=== PATIENT | male | born 1955 | race Caucasian/White ===

== ENCOUNTER 2017-02-15 11:58 | Emergency (ER) | payer BC, OTHER ==
[~2017-02-15] VITALS: Ht 172.7 cm; Wt 72.4 kg
[~2017-02-15 11:58] MED LIST: HYDR-3419 PO
[2017-02-15 12:02] VITALS: TEMP 36.8; Ht 172.7 cm; Wt 72.4 kg
[2017-02-15] MEDS ORDERED: KETOROLAC TROMETHAMINE 60 MG/2 ML VIAL IM STA (12:59)
[2017-02-15 13:07] LABS: URINE APPEARANCE CLEAR (CLEAR); URINE BILIRUBIN NEG (NEG); URINE COLOR YELLOW; URINE NITRITE NEG (NEG); URINE PH 7.5 (4.5-7.5); URINE SPECIFIC GRAVITY 1.022 (1.000-1.030); UROBILINOGEN NEG (NEG); ZZUR CULT IF INDIC CLEAN CATCH NO
[2017-02-15 13:18] LABS: MANUAL MICROSCOPIC REQUIRED? NO; REVIEW REQ? NO
--- NOTE | 2017-02-15 13:48 | DIAGNOSTIC IMAGING REPORT ---
RIGHT HAND MIN 3 VIEWS ROUTINE CLINICAL HISTORY: Right hand/thumb pain Right pain COMPARISON: None. DISCUSSION: Moderate degenerative change first metacarpophalangeal joint as well as interphalangeal joint. Minimal degenerative changes of the remaining interphalangeal joints. Several small marginal erosions. Intercarpal region is unremarkable. There is no evidence for soft tissue swelling. IMPRESSION: Mild degenerative change as described. No acute bony abnormality. The above report was generated using voice recognition software. It may contain grammatical, syntax or spelling errors. Electronically signed by: Antwon Basurto M.D. 02/15/2017 1:46 PM Dictated Date/Time: 02/15/2017 1:44 PM
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
[2017-02-15] MEDS ORDERED: OPTIRAY 320 IV PRN (15:00)
[2017-02-15 15:06] LABS: BASO % 0.2 %; BASO ABS # 0.02 K/uL (0-0.2); COMPLETE YES; EOS % 1.1 %; HEMATOCRIT 40.8 % (42-52); IG% 0.2 %; LYMPH % 15.6 %; LYMPH ABS # 1.47 K/uL (1.2-3.4); MEAN CELL VOLUME 87.4 fL (80-100); MEAN CORPUSCULAR HEMOGLOBIN 30.2 pg (25-34); MEAN CORPUSCULAR HGB CONC 34.6 g/dl (32-36); MEAN PLATELET VOLUME 9.8 fL (7.4-10.4); MONO % 5.8 %; NEUT % 77.1 %; PLATELET COUNT 181 K/uL (130-400); RED BLOOD COUNT 4.67 M/uL (4.7-6.1); WHITE BLOOD COUNT 9.45 K/uL (4.8-10.8)
[2017-02-15 15:21] LABS: BUN/CREATININE RATIO 16.1 (10-20); CALCIUM 9.6 mg/dl (8.5-10.1); CREATININE 0.96 mg/dl (0.60-1.40); POTASSIUM 4.4 mmol/L (3.5-5.1)
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
[2017-02-15] MEDS ORDERED: MoRPHine SULFATE 4 MG/ML 1 ML CARP\\VIAL IV STA (17:28)
[2017-02-15] MEDS ORDERED: ONDANSETRON INJ 2 MG/ML 2 ML VIAL IV STA (17:28)
[2017-02-15] MEDS ORDERED: OXYC1TAB3 PO (17:35)
[2017-02-15] MEDS ORDERED: ONDA4TAB10 SL (17:35)
[2017-02-15 18:06] VITALS: BP 113/84; PULSE 60; O2SAT 95
== END 2017-02-15 18:09 | disposition home or self-care (01) ==
LOC: C.EDB 12:00 → C.EDD 18:09
DX: S22.41XA Multiple fractures of ribs, right side, initial encounter for closed fracture (principal); M51.26 Other intervertebral disc displacement, lumbar region; V23.4XXA Motorcycle driver injured in collision with car, pick-up truck or van in traffic accident, initial encounter; Y93.89 Activity, other specified

== ENCOUNTER 2023-09-11 08:16 | Inpatient (IN) ==
[2023-09-11] MEDS: NITROGLYCERIN SL 0.4 MG/TAB TAB ONE (08:31)
[2023-09-11] MEDS: ASPIRIN CHEW 324 MG ONE (08:31)
--- NOTE | 2023-09-11 08:34 | Emergency Department Note ---
Impression & Plan ST elevation (STEMI) myocardial infarction, Chest pain ED Provider Note Provider: Dank Manrique MD DATE OF SERVICE: 09/11/2023 CHIEF COMPLAINT: Chest pain HISTORY OF PRESENT ILLNESS: Patient is a 67-year-old gentleman history of GERD, hypertension, arthritis presenting here today reporting onset around 6-6 30 when he got up to use the bathroom and came back to bed of developing burning sensation in the upper chest with some radiation to the right arm and into the jaw. Denies syncope or lightheadedness. Denies dizziness. Somewhat short of breath. No nausea or abdominal pain. Has moderated some and currently rates it a 6 or 7 out of 10 at this time. No breakfast this morning. No history of similar. Denies any swelling. No medications prior to arrival PAST MEDICAL HISTORY: As noted above MEDICATIONS: Reviewed does not take aspirin FMH: Mother with a valve replacement in her late 80s SOCIAL HISTORY: Non-smoker, PHYSICAL EXAM: GENERAL: alert and oriented in no acute distress on stretcher Head: normocephalic and atraumatic EYES: No injection, discharge or icterus. NECK: Trachea midline. ENT: Mucous membranes pink and moist. LUNGS: Airway patent. No retractions. Breath sounds clear HEART: Regular rate and rhythm. No chest wall tenderness ABDOMEN: Soft and non-tender, without guarding or rebound. SKIN: Acyanotic, warm, dry, without rashes EXTREMITIES: Without swelling, tenderness or deformity with some slight reproducible pain of the right mid forearm without redness or mass/swelling noted. NEUROLOGICAL: No focal deficits. No aphasia. No facial droop or slurred speech. Ambulatory. EK bpm sinus bradycardia. No PVC or PAC. Some lateral ST segment elevation of V5 and V6 concerning for STEMI. CONTINUOUS CARDIAC MONITORING: was ordered and showed a heart rate of 50s to 60s bpm in sinus bradycardia to normal sinus rhythm Patient's laboratory studies and imaging reviewed. Differential includes Cardiac ischemia, aortic dissection, pulmonary embolism, pneumothorax, pneumonia, pericarditis, myocarditis, esophageal rupture, GERD, cholecystitis, pancreatitis, musculoskeletal, as well as other pathologies. IMPRESSION/MEDICAL DECISION MAKING: Aspirin nitroglycerin and IV heparin ordered. Story as well as EKG with lateral ST segment elevation concerning for STEMI. Heart alert called. Doubt this represents dissection. Not hypoxic and doubt this represents PE. No other infectious symptomatologies. Benign abdomen. Doubt intra-abdominal pathology at this time. Laboratory studies including troponin and BNP were sent. Will have interventional cardiology evaluate for possible reperfusion therapy/[facility]. Hypertension as well as rheumatoid arthritis may be risk factors for CAD. 4000 units of IV heparin was ordered. Evaluated by interventional cardiology and taken to the [facility] for further evaluation. Case management sent alert to the hospitalist team to make them aware of the patient. Troponin does later returned elevated consistent with concerns for evolving ACS. DIAGNOSIS: STEMI, chest pain DISPOSITION: Hospitalist will evaluate Patient was agreeable with this plan. Critical Care I have personally spent 31 minutes of critical care time in the direct management of this patient. This includes bedside care, interpretation of diagnostic studies, and testing, discussion with consultants, patient, and family members, and other required patient management activities. These 31 minutes is in excess of all separately billable procedures. Past Med/Surg History Medical History (Updated 09/11/23 @ 08:50 by Dank Manrique M.D.) Elevated PSA HLA B27 (HLA B27 positive) COVID-19 07/12/21 developed pneumonia Hypertension Rheumatoid arthritis Lateral epicondylitis Surgical History S/P hernia repair 2010- umbilical hernia S/P hemorrhoidectomy 1996-Ligation with rubber band Family History Father Multiple myeloma Mother Diabetes Mitral valve disorder Brother Colorectal cancer Denies family history of Ovarian cancer Prostate cancer Myocardial infarction Breast cancer Lung cancer Stroke Social History Smoking Status: Never smoker Second Hand Exposure: No; Do You Dip or Chew Tobacco: No; Hx Alcohol Use: No Hx Substance Use: No Preferred Language: French Communication Ability: Effective Visual Impairment: Limited Hearing Ability: Normal marital status: Current Living Situation: Spouse current occupational status: employed How many Children do You have: 0 Feels Safe at Home: Yes Childhood Exposure to Second-Hand Smoke: No Diet: gluten free and low carbohydrate caffeine: Yes Dental Care, Regularly: Yes Physical Activity Frequency: 3-4 Times per Week Seatbelt Use: always Sunscreen Use: Yes Do you think of yourself as: straight/heterosexual Assistive Devices: Glasses Allergies Allergies Allergy/AdvReac Type Severity Reaction Status Date / Time oxycodone Allergy Intermediate Nausea/ Verified 07/20/23 08:58 vomitting Home Meds Home Medications Medication Instructions Recorded Confirmed prednisone 5 mg tablet 5 mg PO DAILY PRN 04/13/22 07/20/23 gabapentin 100 mg capsule 100 mg PO DAILY PRN 04/25/22 07/20/23 folic acid 1 mg tablet 1 mg PO 03/22/23 07/20/23 methotrexate sodium 2.5 mg tablet 10 mg PO BID 07/20/23 07/20/23 sulfasalazine 500 mg tablet 1 g PO BID 07/20/23 07/20/23 Previous Rx's Medication Instructions Recorded hydrocortisone 5 mg tablet 5 mg PO DAILY PRN itching #90 tabs 06/02/22 hydrocortisone 2.5 % topical cream 1 applic topical BID PRN skin 08/23/22 irritation #20 grams diclofenac sodium 75 mg 75 mg PO BID #180 tabs 07/20/23 tablet,delayed release meclizine 25 mg tablet 25 mg PO TID #30 tabs 07/20/23 valsartan 80 mg tablet 80 mg PO DAILY #90 tabs 07/20/23 Results & Data (ED) Vital Signs Vital Signs - 24 hr 09/11/23 08:21 09/11/23 08:35 09/11/23 09:54 Temperature 36.0 C L Temperature Source Oral Pulse Rate 58 L 60 Respiratory Rate 16 18 Respiratory Effort / Characteristics Non-Labored Non-Labored Respiratory Depth Normal Normal Respiratory Pattern Regular Blood Pressure 153/78 H Blood Pressure [Left Arm] 118/52 L Blood Pressure Mean 103 Blood Pressure Mean [Left Arm] 74 Blood Pressure Position [Left Arm] Semi-fowlers Pulse Oximetry 100 97 Oxygen Delivery Method Room Air Room Air Sepsis Recent Fever Within 48 Hours No Sepsis New/Unexplained Change in Mental Status N/A Sepsis Action Taken by Nursing No Action Required Laboratory Data 09/11/23 08:33 09/11/23 08:33 Lab Results 09/11/23 09/11/23 09/11/23 Range/Units 08:33 09:10 09:26 WBC 9.43 (4.8-10.8) K/ul RBC 4.17 L (4.70-6.10) M/uL Hgb 12.4 L (14.0-18.0) g/dl Hct 38.2 L (42.0-52.0) % MCV 91.6 (80.0-100.0) fL MCH 29.7 (25.0-34.0) pg MCHC 32.5 (32.0-36.0) g/dL RDW Std Deviation 47.2 H (36.4-46.3) fL RDW Coeff of Rogerio 14.1 (11.5-14.5) % Plt Count 193 (130-400) K/uL MPV 9.1 L (9.4-12.4) fL Immature Gran % (Auto) 0.5 % Neut % (Auto) 74.2 % Lymph % (Auto) 17.1 % Laurel % (Auto) 6.2 % Eos % (Auto) 1.3 % Baso % (Auto) 0.7 % Neut # (Auto) 7.00 H (1.40-6.50) K/uL Lymph # (Auto) 1.61 (1.20-3.40) K/uL Laurel # (Auto) 0.58 (0.11-0.59) K/uL Eos # (Auto) 0.12 (0.00-0.50) K/uL Baso # (Auto) 0.07 (0.00-0.20) K/uL Immature Gran # (Auto) 0.05 (0.01-0.20) K/uL PT 10.3 (9.0-12.0) Seconds INR 0.9 (0.9-1.1) APTT 23 (21-31) Seconds PTT Ratio 0.8 Activ Coag Time Kaolin 190 H 212 H (94-140) SECONDS Sodium 140 (136-145) mmol/L Potassium 4.0 (3.5-5.1) mmol/L Chloride 107 (98-107) mmol/L Carbon Dioxide 27 (21-32) mmol/L Anion Gap 6 (3-11) BUN 21 (6-23) mg/dl Creatinine 0.93 (0.6-1.4) mg/dl Est Cr Clr Drug Dosing 72.5 ml/min Est GFR ( Amer) 96.7 ml/min Est GFR (Non-Af Amer) 83.5 ml/min BUN/Creatinine Ratio 22.6 H (10-20) Glucose 110 H (70-99(Fasting)) mg/dl Calcium 9.9 (8.6-10.3) mg/dl Magnesium 2.0 (1.7-2.4) mg/dl Total Bilirubin 0.4 (0.2-1.0) mg/dl AST 27 (13-39) U/L ALT 24 (7-52) U/L Alkaline Phosphatase 64 (34-104) U/L Total Creatine Kinase 154 (30-223) U/L Troponin I High Sens 147.1 H* (0-20) pg/ml B-Natriuretic Peptide 23 (0-100) pg/ml Total Protein 7.1 (6.0-8.3) gm/dl Albumin 4.3 (3.4-5.0) gm/dl Globulin 2.8 (2.5-4.0) gm/dl Albumin/Globulin Ratio 1.5 (0.9-2) Lipase 23 (11-82) U/L TSH 3.923 (0.300-4.500) uIu/ml SARS-CoV-2, RNA, NAAT (NEGATIVE) 09/11/23 09/11/23 Range/Units 09:40 Unknown WBC (4.8-10.8) K/ul RBC (4.70-6.10) M/uL Hgb (14.0-18.0) g/dl Hct (42.0-52.0) % MCV (80.0-100.0) fL MCH (25.0-34.0) pg MCHC (32.0-36.0) g/dL RDW Std Deviation (36.4-46.3) fL RDW Coeff of Rogerio (11.5-14.5) % Plt Count (130-400) K/uL MPV (9.4-12.4) fL Immature Gran % (Auto) % Neut % (Auto) % Lymph % (Auto) % Laurel % (Auto) % Eos % (Auto) % Baso % (Auto) % Neut # (Auto) (1.40-6.50) K/uL Lymph # (Auto) (1.20-3.40) K/uL Laurel # (Auto) (0.11-0.59) K/uL Eos # (Auto) (0.00-0.50) K/uL Baso # (Auto) (0.00-0.20) K/uL Immature Gran # (Auto) (0.01-0.20) K/uL PT (9.0-12.0) Seconds INR (0.9-1.1) APTT (21-31) Seconds PTT Ratio Activ Coag Time Kaolin 206 H (94-140) SECONDS Sodium (136-145) mmol/L Potassium (3.5-5.1) mmol/L Chloride (98-107) mmol/L Carbon Dioxide (21-32) mmol/L Anion Gap (3-11) BUN (6-23) mg/dl Creatinine (0.6-1.4) mg/dl Est Cr Clr Drug Dosing ml/min Est GFR ( Amer) ml/min Est GFR (Non-Af Amer) ml/min BUN/Creatinine Ratio (10-20) Glucose (70-99(Fasting)) mg/dl Calcium (8.6-10.3) mg/dl Magnesium (1.7-2.4) mg/dl Total Bilirubin (0.2-1.0) mg/dl AST (13-39) U/L ALT (7-52) U/L Alkaline Phosphatase (34-104) U/L Total Creatine Kinase (30-223) U/L Troponin I High Sens (0-20) pg/ml B-Natriuretic Peptide (0-100) pg/ml Total Protein (6.0-8.3) gm/dl Albumin (3.4-5.0) gm/dl Globulin (2.5-4.0) gm/dl Albumin/Globulin Ratio (0.9-2) Lipase (11-82) U/L TSH (0.300-4.500) uIu/ml SARS-CoV-2, RNA, NAAT NEGATIVE (NEGATIVE) Administered Medications Discontinued Medications Adenosine (Adenosine Iv Soln 3 Mg/Ml 2 Ml Vial) Confirm Administered Dose 6 mg IV .STK-MED ONE Stop: 09/11/23 09:25 Last Admin: 09/11/23 09:39 Dose: 6 mg Documented By: JUJU Aspirin (Aspirin Chew 324 Mg) Confirm Administered Dose 324 mg .ROUTE .STK-MED ONE Stop: 09/11/23 08:30 Last Admin: 09/11/23 08:31 Dose: 324 mg Documented By: NRB Aspirin (Aspirin 81 Mg Chew) 324 mg PO NOW STA Stop: 09/11/23 08:33 Last Admin: 09/11/23 08:36 Dose: 324 mg Documented By: DARIA Fentanyl Citrate (Fentanyl Citrate Pf 100 Mcg/2 Ml Vial) Confirm Administered Dose 100 mcg .ROUTE .STK-MED ONE Stop: 09/11/23 08:35 Last Increment: 09/11/23 09:38 Dose: 25 mcg Documented By: ROSA Heparin Sodium (Porcine) (Heparin (Porcine) 1000 Unit/Ml 10 Ml ([facility] Use Only)) Confirm Administered Dose 10,000 units .ROUTE .STK-MED ONE Stop: 09/11/23 08:35 Last Admin: 09/11/23 09:39 Dose: 8,500 units Documented By: ROSA Heparin Sodium (Porcine) (Heparin Sod (Porcine) 1000 Unit/Ml) 4,000 units IV NOW ONE Stop: 09/11/23 08:36 Last Admin: 09/11/23 08:59 Dose: Not Given Documented By: ROSA Heparin Sodium/Sodium Chloride (Heparin In Nss Infusion 1000 Unit/500 Ml (2 U/Ml) Bag) Confirm Administered Dose 3,000 units IV .STK-MED ONE Stop: 09/11/23 08:35 Last Admin: 09/11/23 08:58 Dose: 3,000 units Documented By: ROSA Ioversol (Optiray 350) Confirm Administered Dose 1 ml .ROUTE .STK-MED ONE Stop: 09/11/23 08:36 Last Admin: 09/11/23 09:39 Dose: 200 ml Documented By: JUJU Midazolam HCl (Midazolam Hcl 1 Mg/Ml 2ml Vial) Confirm Administered Dose 2 mg .ROUTE .STK-MED ONE Stop: 09/11/23 08:35 Last Increment: 09/11/23 09:39 Dose: 1 mg Documented By: ROSA Nicardipine HCl (Nicardipine Hcl Inj 2.5 Mg/Ml 10 Ml Amp) Confirm Administered Dose 25 mg .ROUTE .STK-MED ONE Stop: 09/11/23 08:35 Last Admin: 09/11/23 08:58 Dose: 25 mg Documented By: ROSA Nitroglycerin (Nitroglycerin Sl 0.4 Mg/Tab Tab) Confirm Administered Dose 1.2 mg .ROUTE .STK-MED ONE Stop: 09/11/23 08:31 Last Admin: 09/11/23 08:31 Dose: 0.4 mg Documented By: FRANNY Nitroglycerin (Nitroglycerin Sl 0.4 Mg/Tab Tab) 0.4 mg SL NOW STA Stop: 09/11/23 08:33 Last Admin: 09/11/23 08:36 Dose: 0.4 mg Documented By: DARIA Nitroglycerin/Dextrose (Nitroglycerin/D5w 100mcg/Ml 20ml Syr) Confirm Administered Dose 2,000 mcg .ROUTE .STK-MED ONE Stop: 09/11/23 08:36 Last Admin: 09/11/23 08:58 Dose: 2,000 mcg Documented By: [facility] Ticagrelor (Ticagrelor 90 Mg Tab) Confirm Administered Dose 180 mg .ROUTE .STK- MED ONE Stop: 09/11/23 08:41 Last Admin: 09/11/23 08:58 Dose: 180 mg Documented By: [facility] Imaging Data Radiologist's Impression: Chest X-Ray 09/11/23 08:40 XR chest 1V portable HISTORY: Chest pain, nonspecific COMPARISON: Chest CT 02/15/2017. FINDINGS: No pneumothorax. No pleural effusions. The heart is normal in size. No acute fractures. No evidence for pulmonary edema. Small linear densities within the periphery the right upper lobe and left lung base. Old disconnected right- sided pacer wires are noted. IMPRESSION: Small linear densities within the periphery of the right upper lobe and left lung base. This could represent scarring, atelectasis, or a low-grade pneumonitis. 1-2 month chest x-ray follow-up can be performed to ensure stability/resolution. ACT 112: Negative or not required by law. Electronically signed by: Juan Jose Garcia M.D. 09/11/2023 8:53 AM Discharge Plan Visit Data Chief Complaint: Chest Pain Stated Complaint: UPPER CHEST PAIN ALONG W/LOWER JAW PAIN ED Provider: Dank Manrique Discharge Problem: ST elevation (STEMI) myocardial infarction, Chest pain Patient Disposition: Being Evaluated by Hospitalist Discharge Problem: ST elevation (STEMI) myocardial infarction Qualifiers: Involved coronary artery: unspecified coronary artery Qualified Code(s): I21.3 - ST elevation (STEMI) myocardial infarction of unspecified site Chest pain Qualifiers: Chest pain type: unspecified Qualified Code(s): R07.9 - Chest pain, unspecified
[2023-09-11] MEDS: NITROGLYCERIN SL 0.4 MG/TAB TAB SL STA (08:36)
[2023-09-11] MEDS: ASPIRIN 81 MG CHEW PO STA (08:36)
[2023-09-11 08:42] LABS: Basophils # (auto) 0.07 K/uL (0.00-0.20); Basophils % (auto) 0.7 %; Eosinophils # (auto) 0.12 K/uL (0.00-0.50); Eosinophils % (auto) 1.3 %; Hematocrit (blood only) 38.2 % (42.0-52.0); Hemoglobin 12.4 g/dl (14.0-18.0); Immature Granulocytes # (auto) 0.05 K/uL (0.01-0.20); Immature Granulocytes % (auto) 0.5 %; Lymphocytes # (auto) 1.61 K/uL (1.20-3.40); Lymphocytes % (auto) 17.1 %; Mean Corpuscular Hemoglobin 29.7 pg (25.0-34.0); Mean Corpuscular Hgb Conc 32.5 g/dL (32.0-36.0); Mean Corpuscular Volume 91.6 fL (80.0-100.0); Mean Platelet Volume 9.1 fL (9.4-12.4); Monocytes # (auto) 0.58 K/uL (0.11-0.59); Monocytes % (auto) 6.2 %; Neutrophils % (auto) 74.2 %; Platelet Count 193 K/uL (130-400); RDW Coefficient of Variation 14.1 % (11.5-14.5); RDW Standard Deviation 47.2 fL (36.4-46.3); Red Blood Count 4.17 M/uL (4.70-6.10); White Blood Count 9.43 K/ul (4.8-10.8)
[2023-09-11 08:52] LABS: INR 0.9 (0.9-1.1); Partial Thromboplastin Ratio 0.8; Partial Thromboplastin Time 23 Seconds (21-31); Prothrombin Time 10.3 Seconds (9.0-12.0)
--- NOTE | 2023-09-11 08:55 | XRay Report ---
XR chest 1V portable HISTORY: Chest pain, nonspecific COMPARISON: Chest CT 02/15/2017. FINDINGS: No pneumothorax. No pleural effusions. The heart is normal in size. No acute fractures. No evidence for pulmonary edema. Small linear densities within the periphery the right upper lobe and le ft lung base. Old disconnected right-sided pacer wires are noted. IMPRESSION: Small linear densities within the periphery of the right upper lobe and left lung base. This could re present scarring, atelectasis, or a low-grade pneumonitis. 1-2 month chest x-ray follow-up can be per formed to ensure stability/resolution. ACT 112: Negative or not required by law. Electronically signed by: Juan Jose Garcia M.D. 09/11/2023 8:53 AM
[2023-09-11] MEDS: TICAGRELOR 90 MG TAB ONE (08:58)
[2023-09-11] MEDS: NITROGLYCERIN/D5W 100MCG/ML 20ML SYR ONE (08:58)
[2023-09-11] MEDS: niCARdipine HCL INJ 2.5 MG/ML 10 ML AMP ONE (08:58)
[2023-09-11] MEDS: HEPARIN SOD (PORCINE) 1000 UNIT/ML IV ONE (08:59)
[2023-09-11 09:05] LABS: Albumin Globulin Ratio 1.5 (0.9-2); Albumin Level 4.3 gm/dl (3.4-5.0); BUN Creatinine Ratio 22.6 (10-20); Bilirubin,Total 0.4 mg/dl (0.2-1.0); Calcium 9.9 mg/dl (8.6-10.3); Creatinine Clr Calc Pharmacy 72.5 ml/min; Est GFR (African American) 96.7 ml/min; Est GFR (Non-African American) 83.5 ml/min; Globulin 2.8 gm/dl (2.5-4.0); Total Protein 7.1 gm/dl (6.0-8.3)
[2023-09-11 09:14] LABS: Troponin I High Sensitivity 147.1 pg/ml (0-20)
--- OUTSIDE RECORDS SUMMARY | 2023-09-11 09:14 | External Medical Summary | Summary of Care ---
Author Name Unknown Organization [facility] Address [address] [place] [address] Phone [phone] Care Team Providers Care Cutter Grinder Operator Name Role Phone Kike Rodríguez MD Primary Care Provide r Reason for Visit * Reason Comments Outpatient Testing Encounter Details Date Type Department Care Team (Late st Contact Info) Description 08/07/2023 1:00 PM EST Laboratory Laboratory [place] [address] [place] [id number] [place], Lab [facility] [address] [facility] [place] [address] Rheumatoid arthritis, seropositive, multiple sites (HCC); Encounter for therapeutic drug monitoring Allergies No known active allergiesdocumented as of this encounter (statuses as of 08/07/2023) Medications Medication Sig Dispensed Refills Start Date End Date Status diclofenac sodium (VOLTAREN) 75 MG TBEC Take 1 Tab by mouth 2 times a day. 60 Tab 5 12/18/2019 Active gabapentin (NEURONTIN) 100 MG Capsule Take 1 Capsule by mouth at bedtime. As needed 0 03/18/2020 Active Diclofenac Sodium 1 % gel Apply 5 g topically to affected area. As needed 0 12/27/2019 Active Valsartan 80 MG Oral Tablet (Diovan) Take 2 Tablets by mouth in the morning. 1 daily. 0 08/25/2021 Active Hydrocortisone 5 MG Oral Tablet (Cortef) Take 1 Tablet by mouth in the morning. 1 daily. 0 08/30/2021 Active Hydroxychloroquine Sulfate 200 MG Oral Tablet (Plaquenil) Take by mouth 1 Tablet before bedtime. 30 Tablet 11 05/18/2022 Active predniSONE 5 MG Oral Tablet (Deltasone) Take 2 Tablets by mouth in the morning. 60 Tablet 2 03/02/2023 Active Folic Acid 1 MG Oral Tablet Take 1 Tablet by mouth in the morning. 30 Tablet 5 03/13/2023 Active sulfaSALAzine 500 MG Oral Tablet (Azulfidine) TAKE 2 TABLETS BY MOUTH IN THE MORNING, 2 TABLETS AT NOON, AND 2 TABLETS AT BEDTIME 540 Tablet 1 06/21/2023 Active Methotrexate Sodium 2.5 MG Oral Tablet TAKE 4 TABLETS BY MOUTH WITH BREAKFAST AND 4 TABLETS WITH DINNER ONCE A WEEK 104 Tablet 1 07/18/2023 Active documented as of this encounter (statuses as of 08/07/2023) Active Problems Problem Noted Date Diagnosed Date History of 2019 novel coronavirus disease (COVID -19) 10/09/2020 Encounter for therapeutic drug monitoring 2019 Rheumatoid arthritis, seropositive, multiple sit es documented as of this encounter (statuses as of 08/07/2023) Social History Tobacco Use Types Packs/Day Years Used Date Smoking Tobacco: Never Smokeless Tobacco: Never Alcohol Use Standard Drinks/Week Comments Not Currently 0 (1 standard drink = 0.6 oz pur e alcohol) AUDIT-C Answer Date Recorded Frequency of Alcohol Consumption Never 10/24/2019 Average Number of Drinks Not on file 020 Frequency of Binge Drinking Not on file 08/2019 Sex and Gender Information Value Date Recorded Sex Assigned at Male 07/08/2022 7:59 AM EST Gender Identity Male 07/08/2022 7:59 AM EST Sexual Orientation Straight 07/08/2022 7: 59 AM EST Job Start Date Occupation Industry Not on file Not on file Not on file documented as of this encounter Plan of Treatment Upcoming Encounters Date Type Department Care Team (Late st Contact Info) Description 10/06/2023 9:40 AM EDT Office Visit Rheumatology [address] [place] [address] Quentin Mercedes MD [address] [facility] [place] [address] Pending Results Name Type Priority Associated Diagnoses Date /Time COMPREHENSIVE METABOLIC PANEL Lab Routine Rheumatoid arthritis, seropositive, multiple sites (HCC) Encounter for therapeutic drug monitoring 08/07/2023 12:23 PM EST ERYTHROCYTE SEDIMENTATION RATE (ESR) Lab Routine Rheumatoid arthritis, seropositive, multiple sites (HCC) Encounter for therapeutic drug monitoring 08/07/2023 12:23 PM EST CBC WITH WBC DIFFERENTIAL Lab Routine Rheumatoid arthritis, seropositive, multiple sites (HCC) 08/07/2023 12:23 PM EST CBC Lab Routine Rheumatoid arthritis, seropositive, multiple sites (HCC) 08/07/2023 12:23 PM EST DIFFERENTIAL, AUTOMATED Lab Routine Rheumatoid arthritis, seropositive, multiple sites (HCC) 08/07/2023 12:23 PM EST Health Maintenance Due Date Last Done Comments COVID-19 Vaccine (#1) 1960 Pneumococcal Vaccine: 65+ Ye ars (1 - PCV) 11/26/1959 Depression Screening 1965 DTaP,Tdap,and Td Vaccines (1 - Tdap) 1972 Zoster Vaccines (1 of 2) 1972 Cologuard 1998 Colonoscopy 1998 Colorectal Cancer Screening 1998 Fecal Occult Blood Test 1998 Sigmoidoscopy 1998 Influenza Vaccine (FLU shot) (#1) 2023 Lipid Panel 10/10/2023 10/09/2018 GARDASIL-HPV IMMUNIZATION SERIES Aged Out No longer eligible based on patient's age to complete this topic Hepatitis B Aged Out No longer eligi ble based on patient's age to complete this topic MENINGOCOCCAL (MENACTRA/MENVEO) Aged Out No longer eligible based on patient's age to complete this topic documented as of this encounter Medical Devices Not on filedocumented as of this encounter Visit Diagnoses Diagnosis Rheumatoid arthritis, seropositive, multiple sites (HCC) Encounter for therapeutic drug monitoring documented in this encounter Care Teams Cutter Grinder Operator Relationship Specialty Start Date End Date Kike Rodríguez MD PCP - General Family Medicine 10/24/19 documented as of this encounter
--- OUTSIDE RECORDS SUMMARY | 2023-09-11 09:14 | External Medical Summary ---
Author Name Unknown Address Unknown Organization [id number]:[facility] [place] [address] [facility] [place] [address] Laboratory Report Ordering Provider Test Date Status SUSANNE NAVARRETE 08/07/2023 12:23:24 Final Observation Date Value Abnormality Reference (Units ) Status SYNC LEUKOCYTES IN BLOOD BY AUTOMATED COUNT 08/07/2023 12:23:24 8.76 4.00-10.80 (K/uL) Final Segs 08/07/2023 12:23:24 69.3 40.0-75.0 (%) Final Lymphs % 08/07/2023 12:23:24 21.5 18.0-42.0 (%) Final Monos 08/07/2023 12:23:24 6.2 1.0-11.0 (%) Final Eosinophils 08/07/2023 12:23:24 1.5 0.0-6.0 (%) Final Basos 08/07/2023 12:23:24 0.9 0.0-2.0 (%) Final Immature Granulocyte, Percent 08/07/2023 12:23:24 0.6 0.0-2.0 (%) Final Absolute Segs 08/07/2023 12:23:24 6.08 1.80-7.70 (K/uL) Final Lymphs, absolute 08/07/2023 12:23:24 1.88 1.00-4.80 (K/ul) Final Monos, Abs 08/07/2023 12:23:24 0.54 0.00-1.10 (K/uL) Final Eos, Abs 08/07/2023 12:23:24 0.13 0.00-0.70 (K/uL) Final Basos, Abs 08/07/2023 12:23:24 0.08 0.00-0.20 (K/uL) Final Immature Granulocytes, Number 08/07/2023 12:23:24 0.05 0.00-0.20 (K/uL) Final [place]forming Location [facility] [place] [facility] [place] [address]
--- OUTSIDE RECORDS SUMMARY | 2023-09-11 09:14 | External Medical Summary ---
Author Name Unknown Address Unknown Organization [id number]:[place] [place] [facility] [address] [place] [address] Laboratory Report Ordering Provider Test Date Status SUSANNE NAVARRETE 08/07/2023 12:23:24 Final Observation Date Value Abnormality Reference (Units ) Status WBC, Total 08/07/2023 12:23:24 8.76 4.00-10.80 (K/uL) Final RBC 08/07/2023 12:23:24 4.49 4.50-5.25 (M/uL) Final Hemoglobin 08/07/2023 12:23:24 13.7 Below low normal 14.0-16.8 (g/dL) Final HCT 08/07/2023 12:23:24 43.0 40.0-48.4 (%) Final MCV 08/07/2023 12:23:24 95.8 82.0-99.5 (fL) Final MCH 08/07/2023 12:23:24 30.5 27.0-34.0 (pg) Final MCHC 08/07/2023 12:23:24 31.9 32.0-36.0 (g/dL) Final RDW 08/07/2023 12:23:24 14.6 11.5-15.5 (%) Final Platelets 08/07/2023 12:23:24 242 140-400 (K/uL) Final MPV 08/07/2023 12:23:24 10.0 6.6-11.1 (fL) Final Nucleated erythrocytes/100 leukocytes [Ratio] in Blood by Automated count 08/07/2023 12:23:24 0 <=0 (/100 WBCs) Final Performing Location [facility] [place] [address] [place] [address]
--- OUTSIDE RECORDS SUMMARY | 2023-09-11 09:14 | External Medical Summary | Summary of Care ---
Author Name Unknown Organization [facility] Address [address] [place] [address] Phone [phone] Care Team Providers Care Practical Nursing Teacher Name Role Phone Kike Rodríguez MD Primary Care Provide r Reason for Referral * Evaluate & Treat - Unlimited Visits (Within 10 days (routine)) - Pending Review Specialty Diagnoses / Procedures Referred By Marilyn kiran Referred To Contact Orthopaedic Surgery / Orthopedics Diagnoses Thumb lesion Alycia Meza PA-C [address] [place] [address] Referral ID Status Reason Start Date Expiration Date Visits Requested Visits Authorized [id number] Pending Review Specialty Services Required 08/07/[phone] Question Answer Referral Priority Within 10 days (routine) Where should this appointment be scheduled? [facility] What body part is the patient being seen for? Hand What condition is the patient being seen for? Sprain/Strain/Tear/Other Reason for Visit * Reason Comments NEW PATIENT Would like a waist u p skin exam. Reports a few new spots on face and arm. C/o lump on left thumb x yrs. Fam hx of non melanoma skin cancer- mother * Evaluate & Treat - Unlimited Visits (Within 10 days (routine)) - Authorized Specialty Diagnoses / Procedures Referred By Marilyn kiran Referred To Contact Dermatology Diagnoses Disorder of pigmentation, unspecified Kike Rodríguez MD [address] [place] [address] Referral ID Status Reason Start Date Expiration Date Visits Requested Visits Authorized [id number] Authorized Specialty Services Required 3 [phone] Encounter Details Date Type Department Care Team (Late st Contact Info) Description 08/07/2023 12:30 PM EST Office Visit Dermatology [facility], [place] [address] [place] [address] Alycia Meza PA-C [address] [place] [address] Seborrheic keratosis*; Multiple pigmented nevi; Diffuse photodamage of skin; Skin exam, screening for cancer; Thumb lesion Allergies No known active allergiesdocumented as of this encounter (statuses as of 08/09/2023) Medications Medication Sig Dispensed Refills Start Date [...] as of this encounter (statuses as of 08/09/2023) Active Problems Problem Noted Date Diagnosed Date History of 2019 novel coronavirus disease (COVID -19) 10/09/2020 Encounter for therapeutic drug monitoring 2019 Rheumatoid arthritis, seropositive, multiple sit es documented as of this encounter (statuses as of 08/09/2023) Social History Tobacco Use Types Packs/Day Years [...] on file documented as of this encounter Progress Notes * Nima Gerard MD - 08/09/2023 7:48 PM EST I have reviewed the charting notes and orders and associated images and agree with the assessment and plan of Alycia Frazier PA-C . Nima Gerard MD., Dermatology [facility] Outpatient Specialty Departments [facility] [place] [address] * Alycia Meza PA-C - 08/07/2023 12:31 PM EST Nursing Notes: Tia Hernandez LPN 08/07/23 1231 Sign at exiting of workspace Patient identified by name and date. Chief Complaint Patient presents with NEW PATIENT Would like a waist up skin exam. Reports a few new spots on face and arm. C/o lump on left thumb x yrs. Fam hx of non melanoma skin cancer- mother SUBJECTIVE: HPI: Kike Block is a 67 year old male seen at the request of PCP for skin screening. Pt prefers waist-up exam only C/o newer spots on face and arms- none bothersome C/o lump L thumb x years- injured it several years ago. Lesion has not changed since appearing. No redness, drainage or pain associated. "Gets in the way" with daily tasks. Mother with nonmelanoma skin cancer No personal hx of skin cancer +hx significant sun exposure. Wears sunscreen occasionally. REVIEW OF SYSTEMS: See HPI- all other findings negative Constitutional: (-) fever, chills, sweats, weight loss Cardiovascular: (-) lower extremity edema Skin: (-) no rash or new or changing moles or skin lesions Past Medical History: Diagnosis Date History of 2018 novel coronavirus disease (COVID-19) 10/09/2020 Rheumatoid arthritis, seropositive, multiple sites ([facility]) Patient Active Problem List Diagnosis Code Rheumatoid arthritis, seropositive, multiple sites (HCC) M05.79 Encounter for therapeutic drug monitoring Z51.81 History of 2018 novel coronavirus disease (COVID-19) Z86.16 SOCIAL HISTORY: Social History Tobacco Use Smoking status: Never Smokeless tobacco: Never Substance Use Topics Alcohol use: Not Currently Vaping/E-Cigarette Use Vaping/E-Cigarette Substances Vaping/E-Cigarette Devices MEDICATIONS: Current Outpatient Medications Medication Sig Dispense Refill diclofenac sodium (VOLTAREN) 75 MG TBEC Take 1 Tab by mouth 2 times a day. 60 Tab 5 gabapentin (NEURONTIN) 100 MG Capsule Take 1 Capsule by mouth at bedtime. As needed Diclofenac Sodium 1 % gel Apply 5 g topically to affected area. As needed Valsartan 80 MG Oral Tablet (Diovan) Take 2 Tablets by mouth in the morning. 1 daily. Hydrocortisone 5 MG Oral Tablet (Cortef) Take 1 Tablet by mouth in the morning. 1 daily. Hydroxychloroquine Sulfate 200 MG Oral Tablet (Plaquenil) Take by mouth 1 Tablet before bedtime. 30Tablet 11 predniSONE 5 MG Oral Tablet (Deltasone) Take 2 Tablets by mouth in the morning. 60 Tablet 2 Folic Acid 1 MG Oral Tablet Take 1 Tablet by mouth in the morning. 30 Tablet 5 sulfaSALAzine 500 MG Oral Tablet (Azulfidine) TAKE 2 TABLETS BY MOUTH IN THE MORNING, 2 TABLETS AT NOON, AND 2 TABLETS AT BEDTIME 540 Tablet 1 Methotrexate Sodium 2.5 MG Oral Tablet TAKE 4 TABLETS BY MOUTH WITH BREAKFAST AND 4 TABLETS WITH DINNER ONCE A WEEK 104 Tablet 1 No current facility-administered medications for this visit. ALLERGIES: Patient has no known allergies. OBJECTIVE: GEN: Healthy, alert, no distress, appears oriented, pleasant, and cooperative. PSYCH: Appropriate mood and affect, alert SKIN: Detailed exam of scalp, hair, face including lids and lips, ears, neck, chest, back, abdomen,bilateral upper extremities including the nails and digits was completed and are within normal limits with the following exceptions: 1. Scattered benign appearing lesions over examined skin including scattered benign and relatively monomorphic appearing melanocytic nevi, waxy flesh- colored, greyish brown benign and non-inflamed appearing stuck-on papules and plaques, benign and uniform appearing brown macules and patches in sun exposed areas, bright red benign appearing dome-shaped papules and macules, and solar elastosis and evident photodamage of sunexposed skin. 2. Skin-colored nodule distal fingertip of L thumb ASSESSMENT/PLAN: 1. Seborrheic Keratosis -Reassured of the benign nature of lesion -Discussed with patient that they may get more of these lesions in the future -If there are any lesions that become irritated, bleed, or painful to return to clinic for evaluation -No current treatment necessary at this time 2. Multiple benign-appearing nevi - No features concerning for malignancy on exam today. - Continue to monitor with monthly self-skin exams. - Patient counseled on ABCDEs of melanoma. - Discussed and emphasized importance of sun protection including broadband, water-resistant, SPF 30 or greater sunscreen with reapplication q2h or after swimming/excessive perspiration and sun protective attire (wide-brimmed hats, long pants/shirt, sunglasses). - Patient to contact physician for any new or changing lesions or other concerns. 3. Photodamage - The signs and symptoms of skin cancer were reviewed and the patient was advised to practice sun protection and sun avoidance, use daily sunscreen, and perform regular self skin exams. 4. Routine Skin Examination For Skin Cancer -Educated patient on ABCDE's. -Advised patient that if they notice any of these changes to please call for a follow-up appointment as soon as possible. -Counseled patient on criteria for good sunscreen including SPF 30 or higher, broad spectrum (UVA and UVB) and water resistant (up to 40 to 80 minutes). Advised to reapply sunscreen every 2 hours andafter swimming or profuse sweating. Advised to wear protective clothing when out in the sun including long sleeved shirt, pants, wide-brimmed hat and sunglasses. Informed to seek shade during 10 AM to 4 PM when the sun's rays are the strongest. -Advised to perform routine (at least once a year) skin self-examinations. Advised to contact theirdermatologist immediately if they notice any new or changing skin lesions. 5. Skin lesion L thumb- traumatic neuroma vs other - recommend evaluation with hand surgeon for further treatment Referral placed Patient alone today. Follow-up: 1 year Photos taken, patient consented to photos. Applicable photos (if any) and chart reviewed by Dr. Nima Gerard The patient was encouraged to contact me with any further questions or concerns. Alycia Meza PA-C 08/07/2023 12:31 PM documented in this encounter Nursing Notes * Tia Hernandez LPN - 08/07/2023 12:31 PM EST Patient identified by name and date. Chief Complaint Patient presents with NEW PATIENT Would like a waist up skin exam. Reports a few new spots on face and arm. C/o lump on left thumb x yrs. Fam hx of non melanoma skin cancer- mother documented in this encounter Plan of Treatment Upcoming Encounters Date Type Department Care Team (Late st Contact Info) Description 10/06/2023 9:40 AM EDT Office Visit Rheumatology [place] [address] [facility] [place] [address] Quentin Mercedes MD [address] [facility], [place] [address] 08/07/2024 8:20 AM EST Office Visit Dermatology [place] [address] [place] [address] Alycia Meza PA-C [address] [facility] [place] [address] Scheduled Referrals Name Type Priority Associated Diagnoses Order Schedule ORTHOPAEDICS REFERRAL OP Referral Within 10 days (routine) Thumb lesion Ordered: 08/07/2023 Health Maintenance Due Date Last Done Comments [...] Not on filedocumented as of this encounter Procedures Procedure Name Priority Date/Time Associated Diagnosis Comments DERM IMAGE (SITE) Routine 08/07/2023 Skin exam, screening for cancer documented in this encounter Results * DERM IMAGE (SITE) (08/07/2023) 08/07/2023 Alycia Meza PA-C DIGITAL UNA TOGRAPHY documented in this encounter Visit Diagnoses Diagnosis Seborrheic keratosis- Primary Other seborrheic keratosis Multiple pigmented nevi Benign neoplasm of skin, site unspecified Diffuse photodamage of skin Other chronic dermatitis due to solar radiation Skin exam, screening for cancer Screening for malignant neoplasm of the skin Thumb lesion Unspecified disorder of skin and subcutaneous tissue documented in this encounter Care Teams Practical Nursing Teacher Relationship Specialty Start Date End Date Kike Rodríguez MD PCP - General Family Medicine 10/24/19 documented as of this encounter
--- OUTSIDE RECORDS SUMMARY | 2023-09-11 09:14 | External Medical Summary ---
Author Name Unknown Address Unknown Organization K01:LABORATORY [facility] [place] - [address] [facility] [place] [address] Laboratory Report Ordering Provider Test Date Status SUSANNE NAVARRETE 08/07/2023 12:23:24 Final Observation Date Value Abnormality Reference (Units ) Status BUN 08/07/2023 12:23:24 18 6-20 (mg/dL) Final Creatinine 08/07/2023 12:23:24 1.0 0.6-1.2 (mg/dL) Final Glomerular filtration rate/1.73 sq M.predicted [Volume Rate/Area] in Serum, Plasma or Blood by Creatinine-based formula (CKD-EPI) 08/07/2023 12:23:24 85 >=60 (mL/min) Final eGFR is calculated based on the CKD-EPI 2020 equation SODIUM 08/07/2023 12:23:24 139 135-146 (m mol/L) Final Potassium 08/07/2023 12:23:24 4.4 3.5-5.1 (m mol/L) Final Cl 08/07/2023 12:23:24 102 98-107 (mm ol/L) Final CO2 08/07/2023 12:23:24 25 22-32 (mmo l/L) Final Anion gap 08/07/2023 12:23:24 12 7-15 (mmol /L) Final Glucose 08/07/2023 12:23:24 113 70-120 (mg /dL) Final Albumin 08/07/2023 12:23:24 4.8 3.8-5.0 (g /dL) Final AST (Aspartate aminotransferase) 08/07/2023 12:23:24 32 10-50 (U/L) Fin al Alk Phos 08/07/2023 12:23:24 94 35-130 (U/ L) Final Bilirubin, Total 08/07/2023 12:23:24 0.3 <=1 .2 (mg/dL) Final Calcium 08/07/2023 12:23:24 10.3 Above high normal 8. 4-10.2 (mg/dL) Final Protein 08/07/2023 12:23:24 7.2 6.0-8.3 (g /dL) Final ALT (Alanine aminotransferase) 08/07/2023 12:23:24 43 10-50 (U/L) Miky rascon Performing Location LABORATORY [facility] [place] - [address] [facility] [id number]
--- OUTSIDE RECORDS SUMMARY | 2023-09-11 09:14 | External Medical Summary | Summary of Care ---
Author Name Unknown Organization [facility] Address [address] [place] [address] Phone [phone] Care Team Providers Care Trauma Director Name Role Phone Kike Rodríguez MD Primary Care Provide r Reason for Referral * Evaluate & Treat - Unlimited Visits (Within 10 days (routine)) - Pending Review Specialty Diagnoses / Procedures Referred By Marilyn kiran Referred To Contact Orthopaedic Surgery / Orthopedics Diagnoses Thumb lesion Alycia Meza PA-C [address] [place] [address] Referral ID Status Reason Start Date Expiration Date Visits Requested Visits Authorized [id number] Pending Review Specialty Services Required 08/07/2023 999 [...] Disorder of pigmentation, unspecified Kike Rodríguez MD [address] [place] [address] Referral ID Status Reason Start Date Expiration Date Visits Requested Visits Authorized [id number] Authorized Specialty Services Required 3 [phone] Encounter Details Date Type Department Care Team (Late st Contact Info) Description 08/07/2023 12:30 PM EST Office Visit Dermatology [facility] [place] [address] [place] [address] Alycia Meza PA-C [address] [place] [address] Seborrheic keratosis*; Multiple pigmented nevi; Diffuse photodamage of skin; Skin exam, screening for cancer; Thumb lesion Allergies No known active allergiesdocumented as of this encounter (statuses as of 08/08/2023) Medications Medication Sig Dispensed Refills Start Date [...] as of this encounter (statuses as of 08/08/2023) Active Problems Problem Noted Date Diagnosed Date History of 2019 novel coronavirus disease (COVID -19) 10/09/2020 Encounter for therapeutic drug monitoring 2019 Rheumatoid arthritis, seropositive, multiple sit es documented as of this encounter (statuses as of 08/08/2023) Social History Tobacco Use Types Packs/Day Years [...] as of this encounter Progress Notes * Alycia Meza PA-C - 08/07/2023 12:31 [...] Rheumatoid arthritis, seropositive, multiple sites ([facility]) Patient Active Problem List Diagnosis Code Rheumatoid arthritis, seropositive, multiple sites ([facility]) M05.79 Encounter for therapeutic drug monitoring Z51.81 [...] 10/06/2023 9:40 AM EDT Office Visit Rheumatology [place] [address] [place] [address] [place] [address] Quentin Mercedes MD [address] [facility] [place], [place] [address] 08/07/2024 8:20 AM EST [place] [address] [place] [address] [place] [address] Alycia Meza PA-C [address] [facility] [place] [address] Scheduled Referrals Name Type Priority Associated Diagnoses [...] tissue documented in this encounter Care Teams Trauma Director Relationship Specialty Start Date End Date Kike Rodríguez MD PCP - General Family Medicine 10/24/19 documented as of this encounter
--- OUTSIDE RECORDS SUMMARY | 2023-09-11 09:14 | External Medical Summary | Summary of Care ---
Author Name Unknown Organization [facility] Address [address] [place] [facility] [place] [address] Phone [phone] Care Team Providers Care Street Railway Line Installer Name Role Phone Kike Rodríguez MD Primary Care Provide r Reason for Referral * Evaluate & Treat - Unlimited Visits (Within 10 days (routine)) - Authorized Specialty Diagnoses / Procedures Referred By Marilyn t Referred To Contact Dermatology Diagnoses Disorder of pigmentation, unspecified Kike Rodríguez MD [address] [address] Referral ID Status Reason Start Date Expiration Date Visits Requested Visits Authorized [id number] Authorized Specialty Services Required 3 [phone] Question Answer Referral Priority Within 10 days (routine) Where should this appointment be scheduled? [facility] Are you referring the patient for Mohs Surgery and have a current positive skin cancer biopsy result? No What is the reason for the patient referral? Rash/Skin Check/Eval of Lesion or Mole Encounter Details Date Type Department Care Team (Late st Contact Info) Description 07/21/2023 Orders Only [facility] [place], [address] *DO NOT REMOVE THIS DEPARTMENT* [place] [address] Request, External Referral Disorder of pigmentation, unspecified* Allergies No known active allergiesdocumented as of this encounter (statuses as of 07/21/2023) Medications Medication Sig Dispensed Refills Start Date [...] as of this encounter (statuses as of 07/21/2023) Active Problems Problem Noted Date Diagnosed Date History of 2019 novel coronavirus disease (COVID -19) 10/09/2020 Encounter for therapeutic drug monitoring 2019 Rheumatoid arthritis, seropositive, multiple sit es documented as of this encounter (statuses as of 07/21/2023) Social History Tobacco Use Types Packs/Day Years Used Date Smoking Tobacco: Never Smokeless Tobacco: Never Alcohol Use Standard Drinks/Week Comments Not Currently 0 (1 standard drink = 0.6 oz pur e alcohol) AUDIT-C Answer Date Recorded Frequency of Alcohol Consumption Never 10/24/2019 Average Number of Drinks Not on file Frequency of Binge Drinking Not on file [...] 10/06/2023 9:40 AM EDT Office Visit Rheumatology [place] [address] [place] [address] Quentin Mercedes MD [address] [place] [address] Scheduled Referrals Name Type Priority Associated Diagnoses Orde r Schedule DERMATOLOGY REFERRAL OP Referral Within 10 days (routine) Disorder of pigmentation, unspecified Ordered: 07/21/2023 Health Maintenance Due Date Last Done Comments [...] as of this encounter Visit Diagnoses Diagnosis Disorder of pigmentation, unspecified- Primary documented in this encounter Care Teams Street Railway Line Installer Relationship Specialty Start Date End Date Kike Rodríguez MD PCP - General Family Medicine 10/24/19 documented as of this encounter
--- OUTSIDE RECORDS SUMMARY | 2023-09-11 09:14 | External Medical Summary | Summary of Care ---
Author Name Unknown Organization [facility] Address [address] [place] [address] Phone [phone] Care Team Providers Care Photo Technician Name Role Phone Kike Rodríguez MD Primary Care Provide r Reason for Visit * Reason Comments eRx-Medication Refill Encounter Details Date Type Department Care Team (Late st Contact Info) Description 08/27/2023 Refill Rheumatology [place] [address] [facility] [place] [address] Quentin Skinner MD [address] [facility] [place] [address] Allergies No known active allergiesdocumented as of this encounter (statuses as of 08/30/2023) Medications Medication Sig Dispensed Refills Start Date [...] the morning. 1 daily. 0 08/30/2021 Active Hydroxychloroqui ne Sulfate 200 MG Oral Tablet (Plaquenil) Take by mouth 1 Tablet before bedtime. 30 Tablet 11 05/18/2022 Active predniSONE 5 MG Oral Tablet (Deltasone) Take 2 Tablets by mouth in the morning. 60 Tablet 2 03/02/2023 Active sulfaSALAzine 500 MG Oral Tablet (Azulfidine) TAKE 2 TABLETS BY MOUTH IN THE MORNING, 2 TABLETS AT NOON, AND 2 TABLETS AT BEDTIME 540 Tablet 1 06/21/2023 Active Methotrexate Sodium 2.5 MG Oral Tablet TAKE 4 TABLETS BY MOUTH WITH BREAKFAST AND 4 TABLETS WITH DINNER ONCE A WEEK 104 Tablet 1 07/18/2023 Active Folic Acid 1 MG Oral Tablet TAKE 1 TABLET BY MOUTH IN THE MORNING 90 Tablet 3 08/30/2023 Active Folic Acid 1 MG Oral Tablet Take 1 Tablet by mouth in the morning. 30 Tablet 5 03/13/2023 4 Discontinued documented as of this encounter (statuses as of 08/30/2023) Active Problems Problem Noted Date Diagnosed Date History of 2019 novel coronavirus disease (COVID -19) 10/09/2020 Encounter for therapeutic drug monitoring 2019 Rheumatoid arthritis, seropositive, multiple sit es documented as of this encounter (statuses as of 08/30/2023) Social History Tobacco Use Types Packs/Day Years [...] on file documented as of this encounter Miscellaneous Notes * Telephone Encounter - Paty Montiel, [facility] - 08/30/2023 9:41 AM ESTSigned Prescriptions: Disp Refills Folic Acid 1 MG Oral Tablet 90 Tab*3 Sig: TAKE 1 TABLET BY MOUTH IN THE MORNINGAuthorizing Provider: QUENTIN SKINNER User: PATY MONTIEL * Telephone Encounter - Paty Montiel RPh - 08/30/2023 9:37 AM EST Rheumatology: Refill Request(s) Per review of the refill parameters, Medication was refilled Paty Montiel RPh [facility] Clinical Pharmacist Rheumatology Department 08/30/2023,9:37 AM * Telephone Encounter - Luba Thacker - 08/27/2023 1:59 PM ESTPending Prescriptions: Disp Refills Folic Acid 1 MG Oral Tablet 30 Tab*0 Sig: Take 1 Tablet by mouth in the morning. * Telephone Encounter - Luba Thacker - 08/27/2023 1:58 PM EST Did you pend patient's preferred pharmacy and medication before forwarding?yes Pharmacy: [facility] [id number] [address] [facility] Pending Prescriptions: Disp Refills Folic Acid 1 MG Oral Tablet 30 Tab*0 Sig: TAKE 1 TABLET BY MOUTH IN THE MORNING Last Visit: 02/10/2023 (in office), 04/09/2021 (telemedicine) Next Visit: 10/06/2023 If no future appointments scheduled, and last appointment is greater than a year ago, please schedule patient for a follow-up appointment Last date the medication was ordered: 03/13/2023 Is this request for a controlled substance?No Urine Drug Screen:No results found for this or any previous visit. Patient Phone Numbers Labs: Lab Results Component Value Date/Time CREAT 1.0 08/07/2023 12:23 PM CREAT 1.0 04/10/2020 11:00 AM POTASSIUM 4.4 08/07/2023 12:23 PM POTASSIUM 4.5 04/10/2020 11:00 AM TSH 3.93 09/30/2022 08:54 AM TSH 4.32 10/01/2021 07:59 AM LDLCALC 118 (A) 10/09/2018 12:00 AM ALT 43 08/07/2023 12:23 PM ALT 25 04/10/2020 11:00 AM documented in this encounter Plan of Treatment Upcoming Encounters Date Type Department Care Team (Late st Contact Info) Description 10/06/2023 9:40 AM EDT Office Visit Rheumatology [facility] [address] [facility] [place] [address] Quentin Skinner MD [facility] [place] [address] 08/07/2024 8:20 AM EST Office Visit Dermatology [facility] [address] [facility] [place] [address] Alycia Meza PA-C [address] [facility] [place] [address] Health Maintenance Due Date Last Done Comments [...] Not on filedocumented as of this encounter Care Teams Photo Technician Relationship Specialty Start Date End Date Kike Rodríguez MD PCP - General Family Medicine 10/24/19 documented as of this encounter
--- OUTSIDE RECORDS SUMMARY | 2023-09-11 09:14 | External Medical Summary ---
Author Name Unknown Address Unknown Organization K01:[facility] [place] - [address] [place] [address] Laboratory Report Ordering Provider Test Date Status SUSANNE NAVARRETE 08/07/2023 12:23:24 Final Observation Date Value Abnormality Reference (Units ) Status Erythrocyte sedimentation rate by Photometric method 08/07/2023 12:23:24 14 <20 (mm/hour) Final Performing Location [facility] [place] [address] [place] [address]
[2023-09-11 09:19] LABS: Thyroid Stimulating Hormone 3.923 uIu/ml (0.300-4.500)
[2023-09-11] MEDS: fentaNYL citrate PF 100 MCG/2 ML VIAL ONE (09:38)
[2023-09-11] MEDS: HEPARIN (PORCINE) 1000 UNIT/ML 10 ML (CATH LAB USE ONLY) ONE (09:39)
[2023-09-11] MEDS: MIDAZOLAM HCL 1 MG/ML 2ML VIAL ONE (09:39)
[2023-09-11] MEDS: OPTIRAY 350 ONE (09:39)
[2023-09-11] MEDS: ADENOSINE IV SOLN 3 MG/ML 2 ML VIAL IV ONE (09:39)
[2023-09-11] MEDS ORDERED: ONDANSETRON INJ 2 MG/ML 2 ML VIAL IV PRN (09:57)
[2023-09-11] MEDS ORDERED: ATROPINE SULFATE 0.1 MG/ML 10ML SYR IV PRN (09:57)
--- NOTE | 2023-09-11 10:14 | History & Physical Report ---
Date of Service September 11, 2023 Assessment & Plan (1) ST elevation (STEMI) myocardial infarction: Plan: STEMI S/p PCI w/ ANGELICA x3 to Circ - Pain completely resolved post cath Initial troponin 147, trended EKG: Sinus bradycardia, rate 52, QRS narrow, anterolateral ST depressions appreciated - Bradycardic to 50-60s. Pt reports he is a running and this is a normal rate for him. Atropine ribbon hand for sx aspen. - Lipids pending - A1c pending BNP normal Chest x-ray: Small right upper lobe and lung base densities suspicious for atelectasis, scarring, versus pneumonitis. Repeat chest x-ray in 1 to 2 months recommend Echo pending Continue aspirin and Brilinta DAPT, atorvastatin 40 mg daily, Toprol tartrate 25 mg twice daily hold for bradycardia. If EF wnl on echo --> continue ARB. No signs of CHF on exam. (2) Hypertension: Plan: Hypertension Home valsartan continued as noted Metoprolol added. Hold for bradycardia as needed - Normotensive at bedside (3) GERD (gastroesophageal reflux disease): Plan: - no sx on admit. Chest pain resolved post stent, cardiac etiology (4) Rheumatoid arthritis: Plan: - Continue home meds (5) Anemia: Plan: History of anemia Normocytic anemia, hemoglobin 12.4 on admission B12, folic acid, iron levels ordered, retic count/index pending No indication for transfusion at time of admission - Denies bleeding - FHX of colorectal cancer in brother. Pt has had colonoscopy 7 years ago, and regular cologuard screen all negative (last 2 yrs ago). Plan Full Code, Diet, ICU post cath. History of Present Illness Primary Care Provider: Kike Rodríguez MD Kike is a 67-year-old male with a past medical history of hypertension, rheumatoid arthritis, GERD, and vertigo who presented to the ER presented with chest pain. Patient awoke this morning and on ambulation to the bathroom developed 78/10 chest pain with radiation into his right arm and jaw with shortness of breath. Patient received nitroglycerin, aspirin, and was given a heparin bolus. 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 Kike is seen at the bedside post cath. He reports acute MORNING, walked to the bathroom to use the restroom, and then returned to bed and when laying down had sudden onset of severe 910/10 chest pain in his sternum which radiated to his lower jaw bilaterally. He has had some intermittent numbness and discomfort in his right wrist which he attributes to arthritis otherwise no arm or shoulder pain. He reports he was short of breath with this pain but was not diaphoretic. He has not had chest pain leading up to this although has had GERD which she initially thought the symptoms were, but due to severity presented for evaluation. He does not have a prior history of heart disease. Denies family h istory of early heart disease, his mother had a murmur in her old age 80s otherwise denies cardiac history. No personal or family history of diabetes. No personal or family history of stroke. Patient has a history of hypertension well-controlled on valsartan. He does not use tobacco products. He reports that his resting heart rate is usually around 5060s, and he is an active crew leader/runner so his current heart rate is not atypical for him. He has not had any lightheadedness/dizziness/syncope/presyncope. Postcatheterization his chest pain has completely resolved. He last took his medications yesterday. Medications reviewed at bedside. Multiple updates made. Allergies Allergy/AdvReac Type Severity Reaction Status Date / Time oxycodone Allergy Intermediate Nausea/ Verified 07/20/23 08:58 vomitting Home Medications Medication Instructions Recorded Confirmed Type prednisone 5 mg tablet 5 mg PO DAILY PRN Pain 04/13/22 09/11/23 History gabapentin 100 mg capsule 100 mg PO DAILY PRN Pain 04/25/22 09/11/23 History folic acid 1 mg tablet 1 mg PO 03/22/23 07/20/23 History methotrexate sodium 2.5 mg tablet 12.5 mg PO WK 07/20/23 09/11/23 History sulfasalazine 500 mg tablet 1 g PO BID 07/20/23 09/11/23 History diclofenac sodium 75 mg 75 mg PO BID PRN arthritis pain 09/11/23 09/11/23 History tablet,delayed release meclizine 25 mg tablet 25 mg PO TID PRN Dizziness 09/11/23 09/11/23 History valsartan 80 mg tablet 80 mg PO HS 09/11/23 09/11/23 History Past Med/Surg History Medical History Elevated PSA HLA B27 (HLA B27 positive) COVID-19 07/12/21 developed pneumonia Hypertension Rheumatoid arthritis Lateral epicondylitis Surgical History S/P hernia repair 2010- umbilical hernia S/P hemorrhoidectomy 1996-Ligation with rubber band Family History Father Multiple myeloma Mother Diabetes Mitral valve disorder Brother Colorectal cancer Denies family history of Ovarian cancer Prostate cancer Myocardial infarction Breast cancer Lung cancer Stroke Social History Smoking Status: Never smoker Second Hand Exposure: No; Do You Dip or Chew Tobacco: No; Hx Alcohol Use: No Hx Substance Use: No Preferred Language: Uzbek Communication Ability: Effective Visual Impairment: Limited Hearing Ability: Normal marital status: Current Living Situation: Spouse current occupational status: employed How many Children do You have: 0 Feels Safe at Home: Yes Childhood Exposure to Second-Hand Smoke: No Diet: gluten free and low carbohydrate caffeine: Yes Dental Care, Regularly: Yes Physical Activity Frequency: 3-4 Times per Week Seatbelt Use: always Sunscreen Use: Yes Do you think of yourself as: straight/heterosexual Assistive Devices: Glasses Physical Exam Physical Exam: General: A&Ox3. NAD. Cooperative. HEENT: Atraumatic, normocephalic. Pulm: CTAB A&P. -wheezes, -rales, -rhonchi. Symmetrical chest rise. No increased work of breathing. No respiratory distress. Cardiac: RRR, -mrg. Radial pulses intact and symmetrical. No JVD. No LE edema. Abdominal: Nontender, nondistended, soft. BS present. Ext: R TR band in place. Trace numbness of the R thumb, otherwise senstaion to soft touch intact in all fingers bilaterally. Cap refill brisk, radial pulse palpable bilaterally, no radial hematoma. Almond Paste Mixer strenght 5/5 bilaterally. Results & Data Results & Data Vital Signs (Past 12 Hours) Vital Signs Temp Pulse Resp BP BP Pulse Ox O2 Del Method 09/11/23 10:08 50 L 09/11/23 10:08 18 107/67 97 Room Air 09/11/23 09:54 18 118/52 L 97 Room Air 09/11/23 08:35 60 09/11/23 08:21 36.0 C L 58 L 16 153/78 H 100 Room Air PG Care Time/CCT Total # of Minutes Spent Total Time Spent with Patient: Total time spent is greater than 50% in coordination of care (as documented) at patient's floor/unit and/or counseling patient: Coding Level of Care Code 16012 INT INP/OBS CARE 3/75MIN Diagnoses ST elevation (STEMI) myocardial infarction I21.3 Involved coronary artery: unspecified coronary artery Hypertension I10 GERD (gastroesophageal reflux disease) K21.9 Rheumatoid arthritis M06.9 Anemia D64.9 (1) ST elevation (STEMI) myocardial infarction Involved coronary artery: unspecified coronary artery Qualified Code(s): I21.3 - ST elevation (STEMI) myocardial infarction of unspecified site
--- NOTE | 2023-09-11 11:03 | Electrocardiogram Report ---
Test Reason : Blood Pressure : / mmHG Vent. Rate : 052 BPM Atrial Rate : 052 BPM P-R Int : 170 ms QRS Dur : 098 ms QT Int : 408 ms P-R-T Axes : 059 038 039 degrees QTc Int : [address] elevation, consider early repolarization, pericarditis, or injury Abnormal ECG No previous ECGs available Confirmed by Adriel Frey ([id number]) on 09/11/2023 11:03:48 AM Referred By: Confirmed By:Keagan Frey
--- NOTE | 2023-09-11 11:05 | Electrocardiogram Report ---
Test Reason : Blood Pressure : / mmHG Vent. Rate : 050 BPM Atrial Rate : 050 BPM P-R Int : 176 ms QRS Dur : 090 ms QT Int : 446 ms P-R-T Axes : 056 038 004 degrees QTc Int : 406 ms Sinus bradycardia Nonspecific ST abnormality Abnormal ECG When compared with ECG of 11-SEP-2023 08:28, (unconfirmed) ST no longer elevated in Inferior leads Confirmed by Adriel Frey ([id number]) on 09/11/2023 11:05:07 AM Referred By: REFERRED SELF Confirmed By:Keagan Frey
[2023-09-11 12:09] LABS: Basophils # (auto) 0.05 K/uL (0.00-0.20); Basophils % (auto) 0.5 %; Eosinophils # (auto) 0.02 K/uL (0.00-0.50); Eosinophils % (auto) 0.2 %; Hematocrit (blood only) 36.4 % (42.0-52.0); Immature Granulocytes # (auto) 0.04 K/uL (0.01-0.20); Immature Granulocytes % (auto) 0.4 %; Lymphocytes # (auto) 1.11 K/uL (1.20-3.40); Lymphocytes % (auto) 11.9 %; Mean Corpuscular Hemoglobin 29.6 pg (25.0-34.0); Mean Corpuscular Volume 89.9 fL (80.0-100.0); Mean Platelet Volume 9.8 fL (9.4-12.4); Monocytes # (auto) 0.39 K/uL (0.11-0.59); Monocytes % (auto) 4.2 %; Neutrophils # (auto) 7.72 K/uL (1.40-6.50); Neutrophils % (auto) 82.8 %; Platelet Count 195 K/uL (130-400); RDW Coefficient of Variation 13.9 % (11.5-14.5); RDW Standard Deviation 45.4 fL (36.4-46.3); Red Blood Count 4.05 M/uL (4.70-6.10); White Blood Count 9.33 K/ul (4.8-10.8)
[2023-09-11] MEDS: ATORVASTATIN 40 MG TAB PO SCH (12:45)
[2023-09-11] MEDS: SODIUM CHLORIDE 0.9% 1,000 ML IV SCH (12:46)
--- NOTE | 2023-09-11 15:11 | Pre Anesthesia Assessment ---
Date of Service September 11, 2023 Pre Sedation Assessment Vital Signs Temp Pulse Resp BP BP Pulse Ox O2 Del Method 09/11/23 12:10 67 17 92 09/11/23 12:00 55 L 15 98 09/11/23 12:00 117/71 09/11/23 11:50 53 L 17 99 09/11/23 11:45 55 L 16 97 09/11/23 11:45 116/58 L 09/11/23 11:40 56 L 18 98 09/11/23 11:30 57 L 16 98 09/11/23 11:30 113/57 L 09/11/23 11:20 59 L 22 91 09/11/23 11:15 52 L 23 98 09/11/23 11:15 116/58 L 09/11/23 11:10 54 L 15 98 09/11/23 11:00 57 L 17 99 09/11/23 11:00 110/57 L 09/11/23 10:50 52 L 14 97 09/11/23 10:45 51 L 17 96 09/11/23 10:45 113/59 L 09/11/23 10:40 60 17 98 09/11/23 10:30 49 L 15 97 Room Air 09/11/23 10:30 115/60 09/11/23 10:24 57 L 15 09/11/23 10:24 105/61 09/11/23 10:23 55 L 19 09/11/23 10:08 50 L 09/11/23 10:08 18 107/67 97 Room Air 09/11/23 09:54 18 118/52 L 97 Room Air 09/11/23 08:35 60 09/11/23 08:21 36.0 C L 58 L 16 153/78 H 100 Room Air Cardiovascular RRR, no murmur, no edema Respiratory normal respiratory effort, lungs clear to auscultation Pre-Sedation Airway Assessment Smoking Status: Never smoker MALLAMPATI II ASA IV Notes The planned sedation has been discussed with the patient. Informed Consent was obtained. I have identified the patient, determined the appropriateness of sedation and have assessed the patient immediately prior to the procedure. All medicine(s) and interventions are by my order.
--- NOTE | 2023-09-11 15:13 | Post Anesthesia Assessment ---
Date of Service September 11, 2023 Post Sedation Assessment Vital Signs Temp Pulse Resp BP BP Pulse Ox O2 Del Method 09/11/23 12:10 67 17 92 09/11/23 12:00 55 L 15 98 09/11/23 12:00 117/71 09/11/23 11:50 53 L 17 99 09/11/23 11:45 55 L 16 97 09/11/23 11:45 116/58 L 09/11/23 11:40 56 L 18 98 09/11/23 11:30 57 L 16 98 09/11/23 11:30 113/57 L 09/11/23 11:20 59 L 22 91 09/11/23 11:15 52 L 23 98 09/11/23 11:15 116/58 L 09/11/23 11:10 54 L 15 98 09/11/23 11:00 57 L 17 99 09/11/23 11:00 110/57 L 09/11/23 10:50 52 L 14 97 09/11/23 10:45 51 L 17 96 09/11/23 10:45 113/59 L 09/11/23 10:40 60 17 98 09/11/23 10:30 49 L 15 97 Room Air 09/11/23 10:30 115/60 09/11/23 10:24 57 L 15 09/11/23 10:24 105/61 09/11/23 10:23 55 L 19 09/11/23 10:08 50 L 09/11/23 10:08 18 107/67 97 Room Air 09/11/23 09:54 18 118/52 L 97 Room Air 09/11/23 08:35 60 09/11/23 08:21 36.0 C L 58 L 16 153/78 H 100 Room Air Recovery Score Activity: Moves 4 extremities Respiration: Deep Breath/Cough Circulation: +/-20% PreAnes Value Consciousness: Fully Awake Oxygen Saturation: > 92% On Room Air Post Anesthesia Score: 10 Discharge Sedation Level of Care: Fast Track Phase II Post Sedation Plan On clinical assessment, the patient appears to have tolerated the sedation without complications. Patient is recovering as anticipated. Patient will continue to be monitored by nursing and may be discharged when sedation discharge criteria are met per below protocol. Upon Completions of procedure up to 15 minutes continue every 5 minute vital signs and the P.A.R. score; then discharge to a Phase I or Fast Track to Phase II per the following guidelines: * Discharge Patient to appropriate Phase II area if PAR is 8 or greater or return to pre- procedure baseline. The post - procedure orders will be as directed. * If PAR score is less than 8 or not return to pre-procedure baseline then patient will follow Phase I monitoring till PAR is reached for Phase II. The Phase I may be done in procedure room or may call to secure a Phase I area. * If naloxone or flumazenil are used for reversal, hold in Phase I for continued monitoring from when last reversal dose was given for a minimum of 60 minutes or longer pending the nurse and/or physician discretion of patient condition before discharge to Phase II. Please call the Sedation Physician to re-evaluate and complete post-note for discharge to Phase II area. Do NOT discharge from procedure sedation or Phase 1 until post- sedation evaluation note is complete by procedure /sedation MD Sedation Discharge Instructions to be given to the patient at discharge to home. [facility] [place]odes ([place]arges) Indication for Procedure Indication for procedure: STEMI Sedation/Anesthesia Procedure 1: Sedation/Anesthesia: 06743 Mod Sedation by the same physician;Init15 Min Child Age 5 & Up (initial 15 min, start 0900) Total Sedation Time (minutes): 39 Procedure 2: Sedation/Anesthesia: 87710 Mod Sedation by the same physician; Ea [id number] Minutes ([id number] min, end 0939) Total Sedation Time (minutes): 39
--- NOTE | 2023-09-11 16:26 | Cardiac Catheterization ---
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 Cardiac Status Clinical evaluation leading to the procedure CAD Presenation: STEMI Anginal Classification: CCS IV Heart Failure: No Cardiogenic Shock within 24 Hours: No Cardiac Arrest within 24 Hours: No Imaging Studies Past 6 Months: No Stress Studies Past 6 Months: No STEMI OR Non-STEMI Symptom Onset Date: 09/11/23 Symptom Onset Time: 06:00 Thrombolytics: No Coronary Anatomy Dominant: Co-Dominant Left Main (% Stenosis): Normal LAD (% Stenosis): Mid (30%) D1 (% Stenosis): Proximal (40%) Circumflex (% Stenosis): Normal OM1 (% Stenosis): Proximal (100%) L PL1 (% Stenosis): Normal L PDA (% Stenosis): Normal RCA (% Stenosis): Mid (30%) R PDA (% Stenosis): Normal R PL1 (% Stenosis): Normal Ramus (% Stenosis): Normal Diagnostic Physicians Name: Bryan Rm MD, PhD Closure Device Percutaneous Entry Location: Radial Closure Device: Radial Band Recommendations: Medical Therapy and/or Counseling and PCI without planned CABG PCI Indication: PCI for STEMI - Stable First Noted: First EKG Lesion Segment Name: Proximal OM Culprit Artery: Yes Stenosis Prior to Rx (%): 100% Chronic Total Occlusion: No Pre-Procedure JENNIFER Flow: 0 Previously Treated Lesion: No Lesion Complexity: Non-High/Non-C Lesion Length (mm): 12 Thrombus Present: Yes Bifurcation Lesion: No Guidewire Across Lesion: Yes Intraprocedure Events Significant Disection: No Perforation: No Cardiac Cath Procedure Full Procedure Date September 11, 2023 Pre-Procedure Diagnosis Pre-Procedure Diagnosis: STEMI AUC Score AUC Score: 09 Post-Procedure Diagnosis Post-Procedure Diagnosis: Severe CAD and Successful PCI Procedure(s) Performed Procedure(s) Performed: Coronary Angiography and Drug Eluting Stent Shotblaster Bryan Rm MD, PhD Estimated Blood Loss Estimated Blood Loss: 10 mL Medication(s) Medication(s): Adenosine, Fentanyl, Heparin, Lidocaine 1%, Nicardipine, Nitroglycerin and Versed Summary of Findings Brief description: Patient was brought to the cardiac catheterization suite where he was shaved and prepped in a sterile fashion. Sedated using IV Versed and fentanyl. Soft tissues of the right wrist were anesthetized using 2 mL of 1% Xylocaine. The right radial artery was accessed using a modified Seldinger technique and a 6 [place] radial artery glide sheath was placed. All catheters were advanced and exchanged over a 0.035 J-tip wire. Patient was provided anticoagulation with IV heparin and antispasmodics including nicardipine and nitroglycerin. Left coronary angiography in orthogonal views with a 5 [place] 4 diagnostic catheter. Right coronary angiography in orthogonal views with a 5 [place] 4 diagnostic catheter. Diagnostic catheters were removed. ACT was checked intermittently and additional heparin was provided as needed to maintain therapeutic anticoagulation. PCI was undertaken using a 6 [place] EBU 3.0 guide catheter. A BMW universal guidewire was advanced and positioned distally in the obtuse marginal branch of the circumflex. Proximal lesion was predilated using a 2.5 x 12 mm sprinter balloon at 6 jarred followed by 2 additional inflations to 8 jarred. A 2.5 x 15 mm [place] drug-eluting stent was then passed across the lesion and deployed at 12 jarred. A second inflation within the stent was made up to 14 jarred. The stent was postdilated in the proximal portion using a 2.5 x 9 mm sprinter [place] balloon at 13 jarred. Angiography was performed after removal of balloon. There was residual occlusion (thrombus?) In the distal vessel. The BMW universal guidewire was therefore advanced and positioned beyond the lesion. The occlusion was predilated using a 1.5 x 6 mm sprinter balloon inflated to 6 jarred followed by 12 jarred. Patient was given 60 mcg of intracoronary adenosine and clinical project assistant angiography performed. Decision was made to stent the occluded segment. 2.9 x 12 mm [place] drug-eluting stent was advanced and positioned across the lesion where was deployed at 14 jarred. The balloon was removed and angiography performed. 2.0 x 8 mm [place] drug-eluting stent was then advanced and positioned in an overlap fashion with the distal edge within the proximal portion of the first stent. It was deployed at 14 jarred. After removal of the stent balloon coronary angiography was performed. The guidewire was removed and final angiographic evaluation was performed. Guide catheter was removed. Radial artery sheath was removed. Hemostasis was obtained using the TR band. Patient remained hemodynamically stable and asymptomatic. He received loading dose of ticagrelor 180 mg p.o. He was returned to the recovery area. This ended the case. Coronary angiography findings: [id number] vessel trifurcating into LAD, circumflex, and ramus. No significant disease. [id number] and transapical. Proximal segment is normal. It provides a large septal branch and a large branching first diagonal. Diagonal has proximal 40% stenosis. Mid LAD has 30% stenosis. Distal vessel has no angiographically evident disease. JUr-[id number]-[id number] and codominant. First branch is a large OM. This is 100% occluded in the proximal segment with JENNIFER 0 flow. Mid circumflex gives an atrial branch and then travels distally where it terminates as 2 small to medium caliber posterolateral branches and a small caliber long PDA. No angiographically evident disease in the remainder of the circumflex or its branches. Ramus-small to medium caliber without significant disease. EQA-mtiip-bpaqmxa and codominant. Mid segment has focal 30% stenosis. Distally the vessel bifurcates into a large PDA and posterolateral branch. These vessels have no disease. PCI of OM1- 0% residual stenosis post PCI No evidence of dissection or perforation post PCI JENNIFER-3 flow post PCI The OM1 branch is seen to be large caliber and long with 3 major branches after PCI. Summary: 1. Severe acute thrombotic occlusion of the large obtuse marginal branch of the circumflex. 2. Successful PCI of the obtuse marginal branch with 2 small caliber overlapped drug-eluting stents distally and a large caliber drug-eluting stent proximally. 3. Dual antiplatelet therapy with aspirin 81 mg daily and ticagrelor 90 mg p.o. twice daily 4. Initiate guideline directed medical therapy for secondary prevention of coronary disease including; low-dose aspirin, high intensity statin therapy, beta-abena, plus or minus AMPARO inhibitor/ARB. Hemodynamics Rest Ao:: 120/61 mmHg Final Ao: 97/42 mmHg LV: Not performed Recommendations Recommendations: Medical Therapy and/or Counseling and PCI without planned CABG Radiation Exposure (mGy) 2335 mGy, fluoroscopy time 12.7 minutes Contrast (mls) 200 mL Anesthesia 1 mg Versed, 25 mcg fentanyl IV. Start time 0900, end time 0939 Procedural Complication(s) None Disposition ICU I attest to the content of the Intraoperative Record and any orders documented therein. Any exceptions are noted below. Ascendant Dx Card Cath Procedure Codes Cardiac Catheterization Procedure 1: Cardiovascular Cath Procedures: 47260 Coronaries Moderate Sedation Procedure 1: Sedation/Anesthesia: 67328 Mod Sedation by the same physician;Init15 Min Child Age 5 & Up (Initial 15 min, start time 0900) Procedure 2: Sedation/Anesthesia: 79947 Mod Sedation by the same physician; Ea [id number] Minutes (Additional 24 min, end time 0939) Stenting Procedure 1: Cardiovascular Stent Procedures: 92515 Perc transluminal revascularization of acute sub/total occl, aMI (OM of circumflex) PG Care Time/CCT Total # of Minutes Spent Total Time Spent with Patient: Total time spent is greater than 50% in coordination of care (as documented) at patient's floor/unit and/or counseling patient:
--- NOTE | 2023-09-11 16:34 | Critical Care Consultation ---
Date of Consultation September 11, 2023 Assessment & Plan (1) ST elevation (STEMI) myocardial infarction: Dual antiplatelet therapy High intensity statin Beta-abena in AMPARO inhibitor when able to tolerate (2) Rheumatoid arthritis: (3) Hypertension: History of Present Illness Reason for Consultation: Status post PCI for acute ST elevation [place] Attending Physician: Paresh Azevedo MD History of Present Illness Patient has past medical history of hypertension rheumatoid arthritis and GERD who presented to the ED after being awoken this morning with 7 out of 10 chest pain with radiation to the right arm and jaw. The emergency department he was found to have an ST elevation NJ and went emergently to [facility]. In the [facility] he was found to have acute occlusion of the large obtuse marginal branch of the circumflex, he had a drug-eluting stent placed. Since that time he has been in the ICU he has had occasional runs of nonsustained ventricular tachycardia and overall feels significantly improved. Allergies Allergy/AdvReac Type Severity Reaction Status Date / Time oxycodone Allergy Intermediate Nausea/ Verified 07/20/23 08:58 vomitting Home Medications Medication Instructions Recorded Confirmed Type prednisone 5 mg tablet 5 mg PO DAILY PRN Pain 04/13/22 09/11/23 History gabapentin 100 mg capsule 100 mg PO DAILY PRN Pain 04/25/22 09/11/23 History folic acid 1 mg tablet 1 mg PO 03/22/23 07/20/23 History methotrexate sodium 2.5 mg tablet 12.5 mg PO WK 07/20/23 09/11/23 History sulfasalazine 500 mg tablet 1 g PO BID 07/20/23 09/11/23 History diclofenac sodium 75 mg 75 mg PO BID PRN arthritis pain 09/11/23 09/11/23 History tablet,delayed release meclizine 25 mg tablet 25 mg PO TID PRN Dizziness 09/11/23 09/11/23 History valsartan 80 mg tablet 80 mg PO HS 09/11/23 09/11/23 History Patient History Medical History Elevated PSA HLA B27 (HLA B27 positive) COVID-07/12/21 developed pneumonia Hypertension Rheumatoid arthritis Lateral epicondylitis Surgical History S/P hernia repair 2010- umbilical hernia S/P hemorrhoidectomy 1997-Ligation with rubber band Family History Father Multiple myeloma Mother Diabetes Mitral valve disorder Brother Colorectal cancer Denies family history of Ovarian cancer Prostate cancer Myocardial infarction Breast cancer Lung cancer Stroke Social History Smoking Status: Never smoker Second Hand Exposure: No; Do You Dip or Chew Tobacco: No; Hx Alcohol Use: No Hx Substance Use: No Preferred Language: Turkmen Communication Ability: Effective Visual Impairment: Limited Hearing Ability: Normal Cable Respooler Required: No Beliefs That Will Affect Care: Yazdanism Yazdanism Beliefs: Photographic [employer] marital status: Current Living Situation: Spouse current occupational status: employed How many Children do You have: 0 Other Information That Helps Us Care for You: No Feels Safe at Home: Yes Safety Concerns: Feels Safe At This Time Childhood Exposure to Second-Hand Smoke: No Diet: gluten free and low carbohydrate caffeine: Yes Dental Care, Regularly: Yes Physical Activity Frequency: 3-4 Times per Week Seatbelt Use: always Sunscreen Use: Yes Do you think of yourself as: straight/heterosexual Assistive Devices: Glasses Review of Systems Review of Systems: No chest pain no shortness of breath no palpitations Physical Exam Physical Exam: General: Alert. nontoxic. Skin: Warm, dry, Head: Atraumatic Ears, nose, mouth and throat: airway patent Cardiovascular: Normal peripheral perfusion Respiratory: no respiratory distress Gastrointestinal: Non distended Musculoskeletal: No deformity Results & Data Results & Data Vital Signs (Past 12 Hours) Vital Signs Temp Pulse Resp BP BP Pulse Ox O2 Del Method 09/11/23 16:00 56 L 09/11/23 15:00 58 L 21 134/66 95 09/11/23 14:00 58 L 17 135/64 96 09/11/23 13:52 59 L 18 124/58 L 96 09/11/23 13:15 64 20 106/56 L 95 09/11/23 12:45 57 L 23 127/52 L 98 09/11/23 12:30 61 19 125/68 100 09/11/23 12:10 67 17 92 09/11/23 12:00 55 L 15 98 09/11/23 12:00 117/71 09/11/23 11:50 53 L 17 99 09/11/23 11:45 55 L 16 97 09/11/23 11:45 116/58 L 09/11/23 11:40 56 L 18 98 09/11/23 11:30 57 L 16 98 09/11/23 11:30 113/57 L 09/11/23 11:20 59 L 22 91 09/11/23 11:15 52 L 23 98 09/11/23 11:15 116/58 L 09/11/23 11:10 54 L 15 98 09/11/23 11:00 57 L 17 99 09/11/23 11:00 110/57 L 09/11/23 10:50 52 L 14 97 09/11/23 10:45 51 L 17 96 09/11/23 10:45 113/59 L 09/11/23 10:40 60 17 98 09/11/23 10:30 49 L 15 97 Room Air 09/11/23 10:30 115/60 09/11/23 10:24 57 L 15 09/11/23 10:24 105/61 09/11/23 10:23 55 L 19 09/11/23 10:08 50 L 09/11/23 10:08 18 107/67 97 Room Air 09/11/23 09:54 18 118/52 L 97 Room Air 09/11/23 08:35 60 09/11/23 08:21 36.0 C L 58 L 16 153/78 H 100 Room Air Critical Care Results & Data Vital Signs (Past 12 Hours) Vital Signs Temp Pulse Resp BP BP Pulse Ox O2 Del Method 09/11/23 16:00 56 L 09/11/23 15:00 58 L 21 134/66 95 09/11/23 14:00 58 L 17 135/64 96 09/11/23 13:52 59 L 18 124/58 L 96 09/11/23 13:15 64 20 106/56 L 95 09/11/23 12:45 57 L 23 127/52 L 98 09/11/23 12:30 61 19 125/68 100 09/11/23 12:10 67 17 92 09/11/23 12:00 55 L 15 98 09/11/23 12:00 117/71 09/11/23 11:50 53 L 17 99 09/11/23 11:45 55 L 16 97 09/11/23 11:45 116/58 L 09/11/23 11:40 56 L 18 98 09/11/23 11:30 57 L 16 98 09/11/23 11:30 113/57 L 09/11/23 11:20 59 L 22 91 09/11/23 11:15 52 L 23 98 09/11/23 11:15 116/58 L 09/11/23 11:10 54 L 15 98 09/11/23 11:00 57 L 17 99 09/11/23 11:00 110/57 L 09/11/23 10:50 52 L 14 97 09/11/23 10:45 51 L 17 96 09/11/23 10:45 113/59 L 09/11/23 10:40 60 17 98 09/11/23 10:30 49 L 15 97 Room Air 09/11/23 10:30 115/60 09/11/23 10:24 57 L 15 09/11/23 10:24 105/61 09/11/23 10:23 55 L 19 09/11/23 10:08 50 L 09/11/23 10:08 18 107/67 97 Room Air 09/11/23 09:54 18 118/52 L 97 Room Air 09/11/23 08:35 60 09/11/23 08:21 36.0 C L 58 L 16 153/78 H 100 Room Air Lab & Micro Results (Past 24 Hours) RBC 4.05 M/uL (4.70-6.10) L 09/11/23 WBC 9.33 K/ul (4.8-10.8) 09/11/23 Hgb 12.0 g/dl (14.0-18.0) L 09/11/23 Hct 36.4 % (42.0-52.0) L 09/11/23 MCV 89.9 fL (80.0-100.0) 09/11/23 MCH 29.6 pg (25.0-34.0) 09/11/23 MCHC 33.0 g/dL (32.0-36.0) 09/11/23 RDW Standard Deviation 45.4 fL (36.4-46.3) 09/11/23 RDW Coefficient of Variation 13.9 % (11.5-14.5) 09/11/23 Plt Count 195 K/uL (130-400) 09/11/23 MPV 9.8 fL (9.4-12.4) 09/11/23 Neutrophils (%) (Auto) 82.8 % 09/11/23 Lymphocytes (%) (Auto) 11.9 % 09/11/23 Monocytes # (Auto) 0.39 K/uL (0.11-0.59) 09/11/23 Eosinophils # (Auto) 0.02 K/uL (0.00-0.50) 09/11/23 Immature Granulocyte % (Auto) 0.4 % 09/11/23 Neutrophils # (Auto) 7.72 K/uL (1.40-6.50) H 09/11/23 Lymphocytes # (Auto) 1.11 K/uL (1.20-3.40) L 09/11/23 Monocytes # (Auto) 0.39 K/uL (0.11-0.59) 09/11/23 Eosinophils # (Auto) 0.02 K/uL (0.00-0.50) 09/11/23 Basophils # (Auto) 0.05 K/uL (0.00-0.20) 09/11/23 Immature Granulocyte # (Auto) 0.04 K/uL (0.01-0.20) 4 Na 140 mmol/L (136-145) 09/11/23 K 4.0 mmol/L (3.5-5.1) 09/11/23 Cl 107 mmol/L (98-107) 09/11/23 CO2 27 mmol/L (21-32) 09/11/23 Anion Gap 6 (3-11) 09/11/23 BUN 21 mg/dl (6-23) 09/11/23 Creatinine 0.93 mg/dl (0.6-1.4) 09/11/23 Estimated GFR ( Amer) 96.7 ml/min 09/11/23 Estimated GFR (Non-Af Amer) 83.5 ml/min 09/11/23 BUN/Creatinine Ratio 22.6 (10-20) H 09/11/23 Glu 110 mg/dl (70-99(Fasting)) H 09/11/23 Ca 9.9 mg/dl (8.6-10.3) 09/11/23 Total Bilirubin 0.4 mg/dl (0.2-1.0) 09/11/23 AST 27 U/L (13-39) 09/11/23 ALT 24 U/L (7-52) 09/11/23 Alkaline Phosphatase 64 U/L (34-104) 09/11/23 TP 7.1 gm/dl (6.0-8.3) 09/11/23 Albumin 4.3 gm/dl (3.4-5.0) 09/11/23 Globulin 2.8 gm/dl (2.5-4.0) 09/11/23 Albumin/Globulin Ratio 1.5 (0.9-2) 09/11/23 Mg 2.0 mg/dl (1.7-2.4) 09/11/23 08:33 Calcium Level 9.9 mg/dl (8.6-10.3) 09/11/23 08:33 Prothromb Time International Ratio 0.9 (0.9-1.1) 09/11/23 08:3 3 Diagnostic Findings (Past 24 Hours) Chest X-Ray 09/11/23 08:40 XR chest 1V portable HISTORY: Chest pain, nonspecific COMPARISON: Chest CT 02/15/2017. FINDINGS: No pneumothorax. No pleural effusions. The heart is normal in size. No acute fractures. No evidence for pulmonary edema. Small linear densities within the periphery the right upper lobe and left lung base. Old disconnected right- sided pacer wires are noted. IMPRESSION: Small linear densities within the periphery of the right upper lobe and left lung base. This could represent scarring, atelectasis, or a low-grade pneumonitis. 1-2 month chest x-ray follow-up can be performed to ensure stability/resolution. ACT 112: Negative or not required by law. Electronically signed by: Juan Jose Garcia M.D. 09/11/2023 8:53 AM I & O Totals 24 Hours 09/10/23 09/11/23 09/12/23 06:59 06:59 06:59 Intake Total 300 / 300 Output Total 400 / 400 Balance -100 / -100 Cumulative 09/11/23 08:16 thru 09/11/23 16:00 Intake Total 300 Output Total 400 Balance -100 RT Ventilator Mngmt (Last Documented) Ventilator Ordered Settings Respiratory Rate 21 02/19/24 15:00 Ventilator - PT Measurements Respiratory Rate 21 Coding Level of Care Code 35316 IN/OBS CONSULT LVL 3,45M Diagnoses ST elevation (STEMI) myocardial infarction I21.3 Involved coronary artery: unspecified coronary artery Rheumatoid arthritis involving multiple sites, unspecified whether rheumatoid factor present M06.9 Rheumatoid arthritis location: multiple sites Rheumatoid factor presence: unspecified presence Hypertension I10 (1) ST elevation (STEMI) myocardial infarction Involved coronary artery: unspecified coronary artery Qualified Code(s): I21.3 - ST elevation (STEMI) myocardial infarction of unspecified site (2) Rheumatoid arthritis Rheumatoid arthritis location: multiple sites Rheumatoid factor presence: unspecified presence Qualified Code(s): M06.9 - Rheumatoid arthritis, unspecified
[2023-09-11] MEDS: METOPROLOL TARTRATE 25 MG TAB PO SCH (20:15)
[2023-09-11] MEDS: sulfaSALAzine 500 MG TABLET PO SCH (20:16)
[2023-09-11] MEDS: TICAGRELOR 90 MG TAB PO SCH (20:16)
[2023-09-12 05:13] LABS: Reticulocyte % 1.62 % (0.50-2.00); Reticulocytes # 0.06 10^6/uL (0.020-0.100)
[2023-09-12 05:29] LABS: Chol HDL Ratio 3.3 (0-5)
[2023-09-12 05:49] LABS: Ferritin 137.9 ng/ml (8-388)
[2023-09-12 05:52] LABS: Folate (Folic Acid),Ser orPlas 12.52 ng/ml (>5.38)
[2023-09-12 07:32] LABS: Estimated Average Glucose 100 mg/dl; Hemoglobin A1C 5.1 % (4.5-5.6)
[2023-09-12] MEDS: ASPIRIN 81 MG ECTAB PO SCH (08:17)
[2023-09-12 10:47] LABS: Basophils # (auto) 0.06 K/uL (0.00-0.20); Basophils % (auto) 0.8 %; Eosinophils # (auto) 0.14 K/uL (0.00-0.50); Eosinophils % (auto) 1.8 %; Hematocrit (blood only) 38.5 % (42.0-52.0); Hemoglobin 12.4 g/dl (14.0-18.0); Immature Granulocytes # (auto) 0.05 K/uL (0.01-0.20); Immature Granulocytes % (auto) 0.6 %; Lymphocytes # (auto) 1.87 K/uL (1.20-3.40); Lymphocytes % (auto) 23.6 %; Mean Corpuscular Hemoglobin 29.5 pg (25.0-34.0); Mean Corpuscular Hgb Conc 32.2 g/dL (32.0-36.0); Mean Corpuscular Volume 91.7 fL (80.0-100.0); Mean Platelet Volume 9.9 fL (9.4-12.4); Monocytes # (auto) 0.72 K/uL (0.11-0.59); Monocytes % (auto) 9.1 %; Neutrophils # (auto) 5.08 K/uL (1.40-6.50); Neutrophils % (auto) 64.1 %; Platelet Count 235 K/uL (130-400); RDW Coefficient of Variation 14.2 % (11.5-14.5); RDW Standard Deviation 47.2 fL (36.4-46.3); White Blood Count 7.92 K/ul (4.8-10.8)
--- NOTE | 2023-09-12 14:16 | Cardiology Progress Note ---
Date of Service September 12, 2023 Assessment & Plan (1) ST elevation (STEMI) myocardial infarction: Plan: Status post PCI of the large OM1. Proximal vessel ANGELICA, distal vessel 2 overlapped drug-eluting stents. No evidence of complication. He will remain on dual antiplatelet therapy using aspirin 81 mg daily and Brilinta 90 mg p.o. twice daily. His heart rate and blood pressure are at target. Continue guideline directed medical therapy with; aspirin 81 mg daily, a atorvastatin 40 mg daily, metoprolol tartrate 25 mg p.o. twice daily, and valsartan 80 mg daily. Patient's peak troponin was 36,419. After discharge I strongly encouraged the patient to begin CARDIAC REHAB. (2) Hypertension: Plan: Blood pressure well-controlled. Continue metoprolol to tartrate and valsartan. (3) Atherogenic dyslipidemia: Plan: Patient is high risk. High intensity statin therapy is recommended. We started a atorvastatin 40 mg daily. Target LDL reduction is greater than or equal to 50% of untreated baseline LDL. His total cholesterol was 162 mg/dL, LDL cholesterol untreated was 87 mg/dL, and HDL was 49 mg/dL. Triglycerides were 129 mg/dL. We will continue with a atorvastatin 40 mg daily and then reassess his lipids in 3 months titrating his regimen as appropriate. Plan Anticipate the patient will be appropriate for discharge tomorrow. At this time, he is appropriate for transfer to stepdown unit. Admission and Anticipated Discharge Date Admission Date: September 11, 2023 Subjective Patient did well overnight. Reports no chest pain, heaviness, tightness or shortness of breath. No pain at the radial access site although it was numb for a few hours postprocedure. Tolerating his medications without difficulty. Ambulating in the room. His is present at the bedside. Review of Systems Review of Systems: Negative except as per HPI Physical Exam Constitutional: WD/WN, vitals as above Eyes: PERRL, conjunctivae normal, anicteric sclerae ENMT: external ear and nose normal, oropharynx normal Neck: No JVD or bruits Respiratory: normal respiratory effort, lungs clear to auscultation Cardiovascular: Regular rate and rhythm. S4 gallop. Grade 1/6 systolic murmur. No edema. Musculoskeletal: no cyanosis or clubbing, extremities motor strength 5/5 (Radial access intact. Good distal perfusion.) Neurologic: Cognition is intact. Speech is fluent. No focal deficits. No tremor. Psychiatric: A+Ox3, euthymic affect Results & Data Vital Signs (Past 12 Hours) Vital Signs Temp Pulse Resp BP Pulse Ox O2 Del Method 09/12/23 12:00 53 L 20 09/12/23 11:00 55 L 22 09/12/23 10:37 36.8 C 09/12/23 10:32 116/56 L 09/12/23 10:32 43 L 18 98 09/12/23 10:00 51 L 22 09/12/23 09:00 58 L 15 09/12/23 08:18 59 L 19 09/12/23 08:00 36.7 C 09/12/23 07:57 58 L 18 96 09/12/23 07:57 62 19 122/56 L 94 Room Air 09/12/23 07:00 60 20 127/59 L 95 09/12/23 04:00 51 L 16 113/52 L 94 09/12/23 03:41 36.5 C 09/12/23 03:00 52 L 18 122/62 96 PG Care Time/CCT Total # of Minutes Spent Total Time Spent with Patient: Total time spent is greater than 50% in coordination of care (as documented) at patient's floor/unit and/or counseling patient: Coding Level of Care Code 30225 SUB INP/OBS CARE 3/50MIN Diagnoses ST elevation (STEMI) myocardial infarction I21.3 Involved coronary artery: unspecified coronary artery Hypertension I10 Atherogenic dyslipidemia E78.5 (1) ST elevation (STEMI) myocardial infarction Involved coronary artery: unspecified coronary artery Qualified Code(s): I21.3 - ST elevation (STEMI) myocardial infarction of unspecified site
--- NOTE | 2023-09-12 15:54 | XCELERA ---
[id number]
[2023-09-12] MEDS: VALSARTAN 80 MG TAB PO SCH (20:22)
[2023-09-13 04:40] LABS: BUN Creatinine Ratio 18.7 (10-20); Calcium 9.7 mg/dl (8.6-10.3); Est GFR (African American) 81.7 ml/min; Est GFR (Non-African American) 70.5 ml/min; Potassium 4.3 mmol/L (3.5-5.1)
[2023-09-13 10:17] LABS: Basophils # (auto) 0.05 K/uL (0.00-0.20); Basophils % (auto) 0.8 %; Eosinophils # (auto) 0.16 K/uL (0.00-0.50); Eosinophils % (auto) 2.4 %; Hematocrit (blood only) 38.7 % (42.0-52.0); Hemoglobin 12.5 g/dl (14.0-18.0); Immature Granulocytes # (auto) 0.03 K/uL (0.01-0.20); Immature Granulocytes % (auto) 0.5 %; Lymphocytes # (auto) 1.43 K/uL (1.20-3.40); Lymphocytes % (auto) 21.9 %; Mean Corpuscular Hemoglobin 29.8 pg (25.0-34.0); Mean Corpuscular Hgb Conc 32.3 g/dL (32.0-36.0); Mean Corpuscular Volume 92.1 fL (80.0-100.0); Mean Platelet Volume 9.6 fL (9.4-12.4); Monocytes # (auto) 0.59 K/uL (0.11-0.59); Neutrophils # (auto) 4.28 K/uL (1.40-6.50); Neutrophils % (auto) 65.4 %; Platelet Count 199 K/uL (130-400); RDW Coefficient of Variation 14.1 % (11.5-14.5); RDW Standard Deviation 46.9 fL (36.4-46.3); White Blood Count 6.54 K/ul (4.8-10.8)
== END 2023-09-13 15:45 | disposition home or self-care (01) | DRG 322 ==
LOC: ED 08:16 → CC 09:18 → 1E 09:32
PROC: CLB.CCO (2023-09-11 08:45)
DX: I21.21 ST elevation (STEMI) myocardial infarction involving left circumflex coronary artery; Z86.16 Personal history of COVID-19; I10 Essential (primary) hypertension; E78.5 Hyperlipidemia, unspecified; D64.9 Anemia, unspecified; I47.20 Ventricular tachycardia, unspecified; Z88.5 Allergy status to narcotic agent; I25.10 Atherosclerotic heart disease of native coronary artery without angina pectoris; M06.9 Rheumatoid arthritis, unspecified; K21.9 Gastro-esophageal reflux disease without esophagitis